=== PATIENT | female | born 1950 | race Caucasian/White ===

== ENCOUNTER 2019-09-22 19:08 | Observation (INO) ==
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
[2019-09-22 19:45] LABS: Hematocrit 49.7 % (37.0-47.0); Hemoglobin 16.8 gm/dL (12.5-16.0); Mean Cell Volume 91.2 fl (78-100); Mean Corpuscular Hemoglobin 30.8 pg (27-31); Mean Corpuscular Hgb Conc 33.8 g/dl (32-36); Mean Platelet Volume 9.7 fl (8-12.5); Neutrophil # 7.8 K/mm3 (1.3-6.0); Neutrophil % 83.2 % (42-75.0); Platelet Count 290 K/mm3 (150-450); Red Blood Count 5.45 M/mm3 (4.2-5.4); Red Cell Distribution Width 13.7 % (11.5-14.0); White Blood Count 9.4 K/mm3 (4.0-10.5)
[2019-09-22 20:03] LABS: ALT 32 U/L (19-67); AST 31 U/L (0-48); Albumin * 3.7 gm/dl (3.4-5.0); Alkaline Phosphatase * 75 U/L (50-170); Anion Gap 12.9 mmol/L (6.8-13.8); BUN/Creatinine Ratio 25.5 (9.0-21.6); Bilirubin, Total 1.3 mg/dL (0.0-1.1); Blood Urea Nitrogen 28 mg/dL (3-23); Calcium * 9.1 mg/dL (7.9-10.9); Carbon Dioxide 24.9 mmol/L (24-32.6); Chloride 105 mmol/L (97-106); Glucose * 180 mg/dL (70-110); Potassium 3.8 mmol/L (3.4-4.6); Sodium 139 mmol/L (132-142); Total Protein 7.4 gm/dL (6.2-8.2); Troponin I Less than 0.017 ng/mL (0.00-0.10)
[2019-09-22 20:10] LABS: CK Total * 571 U/L (0-259)
[2019-09-22] MEDS ORDERED: NORMAL SALINE 1,000 ML IV ONE ×2 (21:05→22:15)
[2019-09-22 21:06] LABS: Urine Bilirubin 1 mg/dl (NEGATIVE); Urine Blood 5 /ul (NEGATIVE); Urine Ketone 5 mg/dL (NEGATIVE); Urine Nitrite Negative (NEGATIVE); Urine Protein 30 mg/dL (NEGATIVE); Urine Specific Gravity >=1.030 SP.GR. (1.005-1.010); Urine Urobilinogen Normal (NORMAL)
[2019-09-22 21:07] LABS: Urine Appearance Slightly Cloudy (CLEAR); Urine Bacteria TRACE; Urine Color Dark Yellow; Urine RBC 0-5 /hpf (0-5); Urine WBC None Seen /hpf (0-5)
[2019-09-22] MEDS: NORMAL SALINE 1,000 ML IV PRN (23:20)
[2019-09-23] MEDS: NORMAL SALINE 1,000 ML IV PRN (06:05)
--- NOTE | 2019-09-23 08:10 | HP ---
Chief Complaint - Chief Complaint Date of Service: 09/23/19 Time of Service: 08:09 Chief Complaint: syncopal episode, found down History of Present Illness: Patient with a past medical history of Parkinson's disease is visiting here from [place]. She and her daughter are trying to get her a green card to stay, as she has no family left in [place]. On Sunday afternoon (2 days prior), she reportedly was trying to move a bed, was straining herself, and passed out. Her daughter was at work and no one was available to help her up. Initially in the ED, she reported her daughter saw her before going to work, but now she reports that is not accurate and nobody knew she was on the floor for that amount of time. In the ED, her lab work was essentially normal, but her CK was 517. For concerns for potential rhabdo, she was admitted for IV fluids and observation. This morning at the time of my exam, she reports feeling most normal. She does have some shakes. She missed some of her Parkinson medication doses when she was down on the floor. She uses a walker at home. She denies fever, sore throat, cough, vomiting, dysuria. She reports having some diarrhea that she gets with her medication, not increased from baseline. History obtained from her and via an master automotive glass technician. Medical History (Last Updated 09/22/19 @ 23:43 by Juany Ca RN) Brain tumor Parkinson disease Surgical History: Surgical History (Last Updated 09/23/19 @ 06:55 by Juany Ca RN) History of nephrectomy, left History of partial pancreatectomy Hx of appendectomy Hx of cholecystectomy Hx of craniotomy brain tumor removal w/plastic replacing portion of skull over right ear Hx of hysterectomy Social History: (Last Reviewed 09/22/19 @ 23:44 by Juany Ca RN) Tobacco: Smoking Status: Never smoker Alcohol: alcohol intake: never Substance Use: substance use type: does not use Review Of Systems (GEN) - Review of Systems Generalized/Overall Review: Absent: Fever EENTM: Absent: Throat Pain Respiratory: Absent: Cough, Shortness of Breath Cardiac: Absent: Chest Pain, Edema Abdominal: Present: Diarrhea. Absent: Nausea, Vomiting Genitourinary: Absent: Burning Musculoskeletal: Present: No Symptoms Reported Neurological: Present: Tremors Immunizations: IMMUNIZATION HX History of Influenza Vaccine No Allergies/Adverse Reactions: Allergies Allergy/AdvReac Type Severity Reaction Status Date / Time Penicillins Allergy Verified 09/22/19 19:30 Home Medications: HOME MEDICATIONS Buspirone HCl 7.5 mg PO BID 09/22/19 [Last Taken Unknown] Carbidopa/Levodopa [Carbidopa-Levo 10-100 mg Odt] 1 ea PO Q8H 09/22/19 [Last Taken Unknown] Exam - Exam Vital Signs: Vital Signs - Last Taken Temp 36.5 C 09/23/19 06:35 Pulse 82 09/23/19 06:35 Resp 20 09/23/19 06:35 BP 122/72 09/23/19 06:35 Pulse Ox 96 09/23/19 06:35 Constitutional: Present: Alert, Cooperative, Elderly, Obese Respiratory: Present: lungs clear, normal breath sounds, no respiratory distress Cardiovascular/Chest: Present: regular rate, rhythm Abdomen: Present: soft, nontender Extremity: Absent: lower extremity edema Diagnostic Studies: Abnormal Lab Results 09/22/19 09/22/19 09/22/19 Range/Units 19:40 19:40 20:59 RBC 5.45 H (4.2-5.4) M/mm3 Hgb 16.8 H (12.5-16.0) gm/dL Hct 49.7 H (37.0-47.0) % Neutrophils % 83.2 H (42-75.0) % Lymphocytes % 9.4 L (20-51) % Neutrophils # 7.8 H (1.3-6.0) K/mm3 Lymphocytes # 0.88 L (1.5-3.5) k/mm3 BUN 28 H (3-23) mg/dL Est GFR (Non-Af Amer) 52 L (60-130) mL/min BUN/Creatinine Ratio 25.5 H (9.0-21.6) Random Glucose 180 H (70-110) mg/dL Total Bilirubin 1.3 H (0.0-1.1) mg/dL Creatine Kinase 571 H (0-259) U/L Urine Protein 30 H (NEGATIVE) mg/dL Urine Blood 5 H (NEGATIVE) /ul Urine Bilirubin 1 H (NEGATIVE) mg/dl Laboratory Results WBC 9.4 K/mm3 (4.0-10.5) 09/22/19 19:40 RBC 5.45 M/mm3 (4.2-5.4) H 09/22/19 19:40 Hgb 16.8 gm/dL (12.5-16.0) H 09/22/19 19:40 Hct 49.7 % (37.0-47.0) H 09/22/19 19:40 MCV 91.2 fl (78-100) 09/22/19 19:40 MCH 30.8 pg (27-31) 09/22/19 19:40 MCHC 33.8 g/dl (32-36) 09/22/19 19:40 RDW 13.7 % (11.5-14.0) 09/22/19 19:40 Plt Count 290 K/mm3 (150-450) 09/22/19 19:40 MPV 9.7 fl (8-12.5) 09/22/19 19:40 Immature Gran % (Auto) 0.30 % (0.001-0.429) 09/22/19 19:40 Immature Gran # (Auto) 0.03 K/mm3 (0.000-0.0310) 09/22/19 19:40 Neutrophils % 83.2 % (42-75.0) H 09/22/19 19:40 Lymphocytes % 9.4 % (20-51) L 09/22/19 19:40 Monocytes % 6.4 % (0.0-9) 09/22/19 19:40 Eosinophils % 0.3 % (0.0-3.0) 09/22/19 19:40 Basophils % 0.4 % (0.0-1.0) 09/22/19 19:40 Nucleated RBC % 0.0 k/mm3 (0-1) 09/22/19 19:40 Neutrophils # 7.8 K/mm3 (1.3-6.0) H 09/22/19 19:40 Lymphocytes # 0.88 k/mm3 (1.5-3.5) L 09/22/19 19:40 Monocytes # 0.6 k/mm3 (0.0-1.0) 09/22/19 19:40 Eosinophils # 0.0 k/mm3 (0.0-0.7) 09/22/19 19:40 Absolute Basophils 0.0 k/mm3 (0.0-0.1) 09/22/19 19:40 Sodium 139 mmol/L (132-142) 09/22/19 19:40 Plasma Sodium 140 mmol/L (130-142) 09/22/19 19:40 Potassium 3.8 mmol/L (3.4-4.6) 09/22/19 19:40 Chloride 105 mmol/L (97-106) 09/22/19 19:40 Carbon Dioxide 24.9 mmol/L (24-32.6) 09/22/19 19:40 Anion Gap 12.9 mmol/L (6.8-13.8) 09/22/19 19:40 BUN 28 mg/dL (3-23) H 09/22/19 19:40 Creatinine 1.10 mg/dL (0.4-1.4) 09/22/19 19:40 Est GFR (Non-Af Amer) 52 mL/min (60-130) L 09/22/19 19:40 BUN/Creatinine Ratio 25.5 (9.0-21.6) H 09/22/19 19:40 Random Glucose 180 mg/dL (70-110) H 09/22/19 19:40 Calcium 9.1 mg/dL (7.9-10.9) 09/22/19 19:40 Calcium Adj for Albumin 9.0 mg/dL (8.4-10.2) 09/22/19 19:40 Total Bilirubin 1.3 mg/dL (0.0-1.1) H 09/22/19 19:40 AST 31 U/L (0-48) 09/22/19 19:40 ALT 32 U/L (19-67) 09/22/19 19:40 Alkaline Phosphatase 75 U/L (50-170) 09/22/19 19:40 Creatine Kinase 571 U/L (0-259) H 09/22/19 19:40 Troponin I Less than 0.017 ng/mL (0.00-0.10) 09/22/19 19:40 Total Protein 7.4 gm/dL (6.2-8.2) 09/22/19 19:40 Albumin 3.7 gm/dl (3.4-5.0) 09/22/19 19:40 Urine Color Dark yellow 09/22/19 20:59 Urine Appearance Slightly cloudy (CLEAR) 09/22/19 20:59 Urine pH 6.0 pH (5.0-7.0) 09/22/19 20:59 Ur Specific [place] >=1.030 SP.GR. (1.005-1.010) 09/22/19 20:59 Urine Protein 30 mg/dL (NEGATIVE) H 09/22/19 20:59 Urine Glucose (UA) Negative mg/dL (NEGATIVE) 09/22/19 20:59 Urine Ketones 5 mg/dL (NEGATIVE) 09/22/19 20:59 Urine Blood 5 /ul (NEGATIVE) H 09/22/19 20:59 Urine Nitrate Negative (NEGATIVE) 09/22/19 20:59 Urine Bilirubin 1 mg/dl (NEGATIVE) H 09/22/19 20:59 Urine Ictotest Negative (NEGATIVE) 09/22/19 20:59 Prot Sulfosalicylic Acd 1+ mg/dL (0) 09/22/19 20:59 Urine Urobilinogen Normal EU/dl (NORMAL) 09/22/19 20:59 Ur Leukocyte Esterase Negative /ul (NEGATIVE) 09/22/19 20:59 Urine RBC 0-5 /hpf (0-5) 09/22/19 20:59 Urine WBC None seen /hpf (0-5) 09/22/19 20:59 Ur Epithelial Cells None seen /hpf (0-5) 09/22/19 20:59 Urine Bacteria Trace (NONE) 09/22/19 20:59 Urine Culture Comments Culture to follow 09/22/19 20:59 Assessment/Plan - Assessment/Plan (1) Rhabdomyolysis Assessment: With her CK of 517, well below the threshold of 5 times upper limit of normal, there is less concern for rhabdo. Creatinine was 1.1, so she does not have an acute kidney injury. She denies muscle pain this morning. Her urine was described as dark yellow on UA, with a specific gravity of greater than 1.03. She was given maintenance fluids overnight. PT eval pending, and likely discharge later this afternoon. Problem: Ruled-out Qualifiers: Rhabdomyolysis type: traumatic Encounter type: initial encounter Qualified Code(s): T79.6XXA - Traumatic ischemia of muscle, initial encounter (2) Parkinson disease Assessment: She initially reported being diagnosed 2 years ago in [place], but this morning reports being diagnosed within the last 6 months. A physician in [place] has been filling her Parkinson medications. We will attempt to get those records. Continue carvidopa-levadopa. She is hoping to get a life alert bracelet, and can give her and her family that information. She uses a walker at baseline. Problem: Chronic (3) Fall Assessment: She is not reporting any injury from her fall. CT head and C-spine done in the ED were normal. Problem: Acute Qualifiers: Encounter type: initial encounter Qualified Code(s): W19.XXXA - Unspecified fall, initial encounter
[2019-09-23] MEDS ORDERED: busPIRone HCL 5 MG TABLET PO SCH (09:00)
[2019-09-23] MEDS: LEVODOPA PO SCH ×2 (09:24→16:52)
[2019-09-23] MEDS: CARBIDOPA PO SCH ×2 (09:24→16:52)
--- NOTE | 2019-09-23 16:24 | DS ---
(1) Rhabdomyolysis Problem: Ruled-out Qualifiers: Rhabdomyolysis type: traumatic Encounter type: initial encounter Qualified Code(s): T79.6XXA - Traumatic ischemia of muscle, initial encounter (2) Parkinson disease Problem: Chronic (3) Fall Problem: Acute Qualifiers: Encounter type: initial encounter Qualified Code(s): W19.XXXA - Unspecified fall, initial encounter Date of Discharge:: 09/23/19 Description of Stay: Patient with a past medical history of Parkinson's disease is visiting here from [place]. History obtained from her and via an ostrich farm worker. She is in the process of possibly moving here, as she has no family left in [place]. On Sunday afternoon (2 days prior), she reportedly was trying to move a bed, was straining herself, and passed out. Her daughter was at work and no one was available to help her up. In the ED, her lab work was essentially normal, but her CK was 517. For concerns for potential rhabdo, she was admitted for IV fluids and observation. At the time of my exam the morning after admission, she reports feeling almost normal. She does have some shakes. She missed some of her Parkinson medication doses when she was down on the floor. She uses a walker at home. She denies fever, sore throat, cough, vomiting, dysuria. She reports having some diarrhea that she gets with her medication, not increased from baseline. During her stay, she was evaluated by physical therapy, who reported she would benefit from skilled physical therapy. However, since she is visiting from [place], she has to pay for all services. Concerns for her mobility were relayed to her family. Recommend she not be home alone and have assistance with transfers. Since her CK was well within the 5X upper limits of normal and she denied muscle pains on the morning after admission, it was felt she did not actually have rhabdomyolysis. She was DC'd after a period of observation. Procedures Performed: none Results and Findings: Pending Mircobiology Results 09/22/19 21:00 Urine,Catheterized Urine Culture - Preliminary No Growth Lab Pending Results 09/22/19 19:40: WBC 9.4, RBC 5.45 H, Hgb 16.8 H, Hct 49.7 H, MCV 91.2, MCH 30.8, MCHC 33.8, RDW 13.7, Plt Count 290, MPV 9.7, Immature Gran % (Auto) 0.30, Immature Gran # (Auto) 0.03, Neutrophils % 83.2 H, Lymphocytes % 9.4 L, Monocytes % 6.4, Eosinophils % 0.3, Basophils % 0.4, Nucleated RBC % 0.0, Neutrophils # 7.8 H, Lymphocytes # 0.88 L, Monocytes # 0.6, Eosinophils # 0.0, Absolute Basophils 0.0 09/22/19 19:40: Sodium 139, Plasma Sodium 140, Potassium 3.8, Chloride 105, Carbon Dioxide 24.9, Anion Gap 12.9, BUN 28 H, Creatinine 1.10, Est GFR (Non-Af Amer) 52 L, BUN/Creatinine Ratio 25.5 H, Random Glucose 180 H, Calcium 9.1, Calcium Adj for Albumin 9.0, Total Bilirubin 1.3 H, AST 31, ALT 32, Alkaline Phosphatase 75, Creatine Kinase 571 H, Troponin I Less than 0.017, Total Protein 7.4, Albumin 3.7 09/22/19 20:59: Urine Color Dark yellow, Urine Appearance Slightly cloudy, Urine pH 6.0, Ur Specific [place] >=1.030, Urine Protein 30 H, Urine Glucose (UA) Negative, Urine Ketones 5, Urine Blood 5 H, Urine Nitrate Negative, Urine Bilirubin 1 H, Urine Ictotest Negative, Prot Sulfosalicylic Acd 1+, Urine Urobilinogen Normal, Ur Leukocyte Esterase Negative, Urine RBC 0-5, Urine WBC None seen, Ur Epithelial Cells None seen, Urine Bacteria Trace, Urine Culture Comments Culture to follow Discharge Location: Home Disposition: Home self-care Condition: Stable Discharge Activity: Activity as tolerated Discharge Diet: Resume usual diet Referrals: Carmen Finnegan DO [Staff Physician] - One Week Complete Home Medications List: Complete Home Medication List: Buspirone HCl 7.5 mg PO BID 09/22/19 Carbidopa/Levodopa [Carbidopa-Levo 10-100 mg Odt] 1 ea PO Q8H 09/22/19
[2019-09-23 18:43] VITALS: BP 148/78
== END 2019-09-23 19:37 | disposition home or self-care (01) ==
LOC: MS 19:08 → ER 19:08 → MS 22:40
PROVIDERS: ADMIT Family Medicine; ATTEND Family Medicine
CPT/HCPCS: 36415; 70450; 72125; 73080; 80053; 81001; 82550; 83874; 84484; 85025; 87086; 93005; 96360; 96361; 97116; 97161; 99285; G0378

== ENCOUNTER 2019-10-07 11:23 | Inpatient (IN) ==
[2019-10-07] MEDS ORDERED: NORMAL SALINE 1,000 ML IV ONE ×2 (11:49→11:50)
--- NOTE | 2019-10-07 12:01 | ERNOTE ---
Trauma/Assault HPI - Narrative Date of Service: 10/07/19 - General Stated Complaint: fall Time Seen by Provider: 10/07/19 11:26 Source: patient Exam Limitations: other - LOC - Immun/Allergies/Home Medications Immunizations: IMMUNIZATION HX Immunizations Up to Date Yes History of Influenza Vaccine More Information Required Hx Pneumococcal Vaccination More Information Required Allergies/Adverse Reactions: Allergies Penicillins Allergy (Verified 09/30/19 04:19) Home Medications: HOME MEDICATIONS Buspirone HCl 7.5 mg PO BID 09/22/19 [Last Taken Unknown] Carbidopa/Levodopa [Carbidopa-Levo 10-100 mg Odt] 1 tab PO Q8H 09/22/19 [Last Taken Unknown] - Pain Pain Score #1 Pain Score: 7 - History of Present Illness Narrative: The patient is a 68 year old female who presents after syncopal episode which reported occurred on Sunday. There are associated symptoms of bilateral knee pain and right elbow pain. The patient reports right elbow and bilateral knee pain, 7/10. There are alleviating factors of rest. There are aggravating factors of movement. Previous treatments have included: none. The past medical history includes: Parkinson and brain tumor. The social history is negative. The patient has had no ill contacts. Patient states she was up on Sunday to make herself breakfast when she attempted to get egg out of fridge and then does not recall what happened. Patient states she awoke on the floor and has been on the floor until today when EMS arrived. EMS reports that patient was lying naked on the floor covered in feces and urine. Review of Systems - Review of Systems Constitutional: Present: weakness, fatigue. Absent: recent illness EYE: Present: no symptoms reported ENT: Present: no symptoms reported. Absent: ear pain, nasal drainage, sore throat Respiratory: Present: no symptoms reported. Absent: shortness of breath, cough Cardiology: Present: no symptoms reported. Absent: chest pain Gastrointestinal/Abdominal: Present: abdominal pain, eating less, drinking less. Absent: vomiting, diarrhea Genitourinary: Present: no symptoms reported. Absent: dysuria, decreased urinary output Musculoskeletal: Present: joint pain. Absent: neck pain Skin: Present: other - abrasions Neurological: Present: weakness. Absent: headache, dizziness/light-headedness All Other Systems: All systems neg except as marked Medical History (Last Reviewed 10/07/19 @ 11:52 by ELVIRA Bishop) Brain tumor Parkinson disease Surgical History: Surgical History (Last Reviewed 10/07/19 @ 11:52 by ELVIRA Bishop) History of nephrectomy, left History of partial pancreatectomy Hx of appendectomy Hx of cholecystectomy Hx of craniotomy brain tumor removal w/plastic replacing portion of skull over right ear Hx of hysterectomy Family History: Family History (Last Reviewed 10/07/19 @ 11:52 by ELVIRA Bishop) Other No pertinent family history Social History: (Last Reviewed 10/07/19 @ 11:52 by ELVIRA Bishop) Tobacco: Smoking Status: Never smoker Alcohol: alcohol intake: never Substance Use: substance use type: does not use Physical Exam - Physical Exam General Appearance: Present: wd/wn, alert, moderate distress Head Exam: Present: normal inspection, no evidence of injury Eye Exam: Normal inspection: bilateral, PERRL: bilateral, EOMI: bilateral Neck: Present: normal inspection, nontender, full range of motion Respiratory: Present: no respiratory distress, normal breath sounds, no accessory muscle use, lungs clear Cardiovascular/Chest: Present: regular rate, rhythm, no murmur Gastrointestinal/Abdominal: Present: normal bowel sounds, nondistended, soft, tenderness - LUQ, guarding - LUQ, other - abrasion and contusion over LUQ Extremity Exam: Present: decreased range of motion - to bilateral knees with flexion, bony tenderness - right elbow able to fully extend and flex but with discomfort upon extension, other - abrasions overlying right elbow and bilateral anterior knees Neurological Exam: Present: alert, oriented, normal mood/affect Skin Exam: Present: normal color, warm/dry, other - pressure sore to right medial great toe MP Detailed Trauma Exam Best Eye Response ([place]): (4) open spontaneously Best Verbal Response ([place]): (5) oriented Best Motor Response ([place]): (6) obeys commands [place] Total: 15 Progress - Date and Time Seen: Date and Time: 10/07/19 13:43 Results reviewed with patient and daughter at bedside. Discussed results of testing with , will admit and start on Lovenox and Coumadin. Patient does not have insurance since patient is not [place] citizen with partial residence in [facility]. Patient upon last discharge returned home since her daughter was unable to care for her due to work as well as having multiple stairs in her home. Daughter states that patient did not have follow up with post discharge due to schedule conflict and she was unable to take her and another family member was also busy. - Results and Orders Patient's Lab Results:: I have reviewed the patient's lab results. - Vital Signs Patient's Vital Signs:: I have reviewed the patient's vital signs. Vital Signs: Vital Signs 10/07/19 11:26 Temperature 35.5 C L Pulse Rate 76 Respiratory Rate 19 Blood Pressure 142/92 H O2 Sat by Pulse Oximetry 99 - EKG EKG #1 EKG: NSR - rate 73, other - left anterior fascicular block EKG read: Reviewed by me - X-Ray X-Ray #1 X-Ray: knee Interpretation: Reviewed by me X-ray Comments: IMPRESSION: SEVERE ARTHRITIC CHANGES BOTH KNEES RIGHT WORSE THAN LEFT. NO ACUTE OSSEOUS PATHOLOGY OTHERWISE IDENTIFIED. Electronically signed by Jony Romero M.D.. X-Ray #2 X-Ray: elbow Interpretation: Reviewed by me X-ray Comments: IMPRESSION: NO ACUTE OSSEOUS PATHOLOGY IDENTIFIED. Electronically signed by Jony Romero M.D - CT/Ultrasound CT/Ultrasound Narrative: IMPRESSION: NO ACUTE INTRACRANIAL ABNORMALITY IDENTIFIED. Electronically signed by Parth Ingram D.O.. IMPRESSION: 1. NO ACUTE FRACTURE OR DISLOCATION. 2. EXTENSIVE DEGENERATIVE CHANGE DESCRIBED ABOVE. Electronically signed by Parth Ingram D.O.. IMPRESSION: 1. BILATERAL RIGHT WORSE THAN LEFT PULMONARY EMBOLI WITH FAIRLY LARGE CLOT BURDEN ON THE RIGHT DISCUSSED ABOVE. NO EVIDENCE FOR RIGHT HEART STRAIN OR SADDLE EMBOLUS HOWEVER. 2. OTHERWISE NO ACUTE CARDIOPULMONARY ABNORMALITY IDENTIFIED. 3. NO EVIDENCE FOR TRAUMA. 4. CHRONIC FINDINGS DETAILS ABOVE. THESE CRITICAL RESULTS WERE CALLED TO THE ORDERING ER HEALTH CARE PROVIDER JULIA CORONA ON OCTOBER 07, 2019 AT 1:26 PM Electronically signed by Parth Ingram D.O.. IMPRESSION: 1. NO ACUTE INTRA-ABDOMINAL OR PELVIC PROCESS. 2. EXTENSIVE POSTSURGICAL CHANGES DESCRIBED ABOVE. 3. INCIDENTAL NOTE IS MADE OF A BILOBED NONAGGRESSIVE LOW-DENSITY POTENTIALLY CYSTIC MASS IN THE CECUM WHICH IS EXTENDING INTO THE LUMEN AND BEYOND THE LUMEN. RECOMMEND DIRECT VISUALIZATION WITH COLONOSCOPY FOR FURTHER EVALUATION. 4. ADDITIONAL CHRONIC FINDINGS AND DETAILS ABOVE. Electronically signed by Parth Ingram D.O.. - Progress/Reassessment Chief Complaint: Fall Departure Clinical Impression: Syncope and collapse, Multiple contusions Pulmonary embolism Qualifiers: Pulmonary embolism type: other Chronicity: acute Acute cor pulmonale presence: without acute cor pulmonale Qualified Code(s): I26.99 - Other pulmonary embolism without acute cor pulmonale - Departure Disposition: Still a patient Condition: Stable Critical Care Time - Critical Care Critical Time Spent:: No
[2019-10-07 12:25] LABS: Hematocrit 50.7 % (37.0-47.0); Hemoglobin 16.8 gm/dL (12.5-16.0); Mean Cell Volume 90.5 fl (78-100); Mean Corpuscular Hgb Conc 33.1 g/dl (32-36); Mean Platelet Volume 9.9 fl (8-12.5); Neutrophil # 10.8 K/mm3 (1.3-6.0); Neutrophil % 86.7 % (42-75.0); Platelet Count 267 K/mm3 (150-450); Red Cell Distribution Width 13.7 % (11.5-14.0); White Blood Count 12.5 K/mm3 (4.0-10.5)
[2019-10-07 12:35] LABS: Prothrombin Time (Patient) 12.1 Seconds (9.1-10.7)
[2019-10-07 12:40] LABS: INR 1.23 INR (0.92-1.08)
[2019-10-07 12:48] LABS: ALT 40 U/L (19-67); AST 34 U/L (0-48); Albumin * 3.5 gm/dl (3.4-5.0); Alkaline Phosphatase * 85 U/L (50-170); Anion Gap 12.7 mmol/L (6.8-13.8); BUN/Creatinine Ratio 39.8 (9.0-21.6); Bilirubin, Total 1.1 mg/dL (0.0-1.1); Blood Urea Nitrogen 43 mg/dL (3-23); CK Total * 496 U/L (0-259); Ca. Corrected For Albumin 8.8 mg/dL (8.4-10.2); Calcium * 8.7 mg/dL (7.9-10.9); Carbon Dioxide 25.3 mmol/L (24-32.6); Chloride 108 mmol/L (97-106); Glucose * 160 mg/dL (70-110); Sodium 142 mmol/L (132-142); Total Protein 7.2 gm/dL (6.2-8.2); Troponin I Less than 0.017 ng/mL (0.00-0.10)
[2019-10-07] MEDS ORDERED: ENOXAPARIN SODIUM 100 MG/ML SYRG SC ONE (13:49)
[2019-10-07] MEDS ORDERED: DIPHTH,PERTUSS(ACELL),TET VAC 0.5 ML VIAL IM ONE (13:50)
[2019-10-07] MEDS ORDERED: WARFARIN SODIUM 5 MG TABLET PO ONE (13:57)
[2019-10-07 15:00] LABS: Urine Appearance Clear (CLEAR); Urine Bilirubin Negative (NEGATIVE); Urine Blood Negative /ul (NEGATIVE); Urine Color Yellow; Urine Protein Negative (NEGATIVE); Urine Urobilinogen Normal (NORMAL); Urine pH 5.5 pH (5.0-7.0)
[2019-10-07 15:01] LABS: Urine Ketone 15 mg/dL (NEGATIVE); Urine Nitrite Negative (NEGATIVE); Urine RBC None Seen /hpf (0-5); Urine WBC 0-5 /hpf (0-5)
[2019-10-07 15:02] LABS: Urine Bacteria None Seen
--- NOTE | 2019-10-07 15:49 | HP ---
Chief Complaint - Chief Complaint Date of Service: 10/07/19 Time of Service: 15:49 Chief Complaint: syncope History of Present Illness: Phuong johnson is a 68-year-old white female with past medical history of Parkinson's disease who was admitted on 10/07/2019 because of a syncopal episode. The patient was trying to make her dinner and bent over to get eggs from the refrigerator and put them in a frying pruett and passed out. She said this happen ed Sunday evening (10/06/2019) although she remmebers she has been down for 2-3 days.. Due to her fall she had bruises and scrapes of her knees and right elbow. These were associated with right elbow and bilateral knee pain which she rated as 7/10. She was not able to get up from the floor and has been laying down on the floor until the day of admission when he EMS arrived. Per EMS notes the patient was found laying naked on the floor covered in feces and urine. The patient is from [facility] and living with her daughter. She was just here on 09/23/2019 for syncopal episode and elevated creatinine kinase. In the emergency room the patient's CT scan showed that she had bilateral pulmonary embolism right more than left with fairly large clot burden on the right however with no right ventricular strain or saddle embolus. Her CT scan of the abdomen showed a cystic mass on her cecal area. Her CT scan of her cervical spine showed no acute fractures. X-ray of her elbow showed no acute fracture. X-ray of her bilateral knees showed severe osteoarthritis. Her blood work showed leukocytosis and an elevated creatinine kinase of 496. Her urinalysis showed no UTI. EKG showed normal sinus rhythm with left anterior fascicular block. . Medical History (Last Reviewed 10/07/19 @ 14:47 by Charley Hood RN) Brain tumor Parkinson disease Surgical History: Surgical History (Last Reviewed 10/07/19 @ 14:47 by Charley Hood RN) History of nephrectomy, left History of partial pancreatectomy Hx of appendectomy Hx of cholecystectomy Hx of craniotomy brain tumor removal w/plastic replacing portion of skull over right ear Hx of hysterectomy Family History: Family History (Last Reviewed 10/07/19 @ 14:47 by Charley Hood RN) Other No pertinent family history Social History: (Last Reviewed 10/07/19 @ 14:47 by Charley Hood RN) Tobacco: Smoking Status: Never smoker Alcohol: alcohol intake: never Substance Use: substance use type: does not use Review Of Systems (GEN) - Review of Systems Generalized/Overall Review: Absent: Weakness, Chills, Fever EENTM: Absent: Blurred Vision Respiratory: Absent: Cough, Shortness of Breath, Orthopnea Cardiac: Present: Syncope. Absent: Chest Pain, Edema, Palpitations Abdominal: Absent: Nausea, Vomiting, Abdominal Pain Genitourinary: Absent: Urgency, Frequency Musculoskeletal: Present: Joint Pain. Absent: Back Pain Neurological: Present: Anxiety, Depressed, Tremors. Absent: Headache Skin: Absent: Lesions, Rash Endocrine: Absent: Intolerance to Cold, Intolerance to Heat Immunizations: IMMUNIZATION HX Immunizations Up to Date Yes History of Influenza Vaccine More Information Required Hx Pneumococcal Vaccination More Information Required Allergies/Adverse Reactions: Allergies Allergy/AdvReac Type Severity Reaction Status Date / Time Penicillins Allergy Verified 09/30/19 04:19 Home Medications: HOME MEDICATIONS Buspirone HCl 7.5 mg PO BID 09/22/19 [Last Taken Unknown] Carbidopa/Levodopa [Carbidopa-Levo 10-100 mg Odt] 1 tab PO Q8H 09/22/19 [Last Taken Unknown] Exam - Exam Vital Signs: Vital Signs - Last Taken Temp 36.9 C 10/07/19 14:55 Pulse 90 10/07/19 14:55 Resp 22 H 10/07/19 14:55 BP 156/70 H 10/07/19 14:55 Pulse Ox 96 10/07/19 14:55 Constitutional: Present: Alert, Oriented x3, Cooperative, Obese ENT Exam: Present: hearing grossly normal Eye Exam: bilateral eye: normal inspection, PERRL, EOMI Neck: Present: supple. Absent: lymphadenopathy (R), lymphadenopathy (L) Respiratory: Present: decreased breath sounds, No rales, No wheezing Cardiovascular/Chest: Present: regular rate, rhythm, no JVD, no murmur Abdomen: Present: Normal bowel sounds, soft, nontender, nondistended, obese Extremity: Present: no calf tenderness, pedal edema, other - bruises/scratches/abrasions Neurologic: Present: presser hand II-XII nml as tested, no motor/sensory deficits, oriented x 3, other - masl fascies Diagnostic Studies: Abnormal Lab Results 10/07/19 10/07/19 10/07/19 Range/Units 12:17 12:17 12:17 WBC 12.5 H (4.0-10.5) K/mm3 RBC 5.60 H (4.2-5.4) M/mm3 Hgb 16.8 H (12.5-16.0) gm/dL Hct 50.7 H (37.0-47.0) % Neutrophils % 86.7 H (42-75.0) % Lymphocytes % 5.6 L (20-51) % Neutrophils # 10.8 H (1.3-6.0) K/mm3 Lymphocytes # 0.70 L (1.5-3.5) k/mm3 PT 12.1 H (9.1-10.7) Seconds INR (Anticoag Therapy) 1.23 H (0.92-1.08) INR Plasma Sodium 143 H (130-142) mmol/L Chloride 108 H (97-106) mmol/L BUN 43 H D (3-23) mg/dL Est GFR (Non-Af Amer) 53 L D (60-130) mL/min BUN/Creatinine Ratio 39.8 H (9.0-21.6) Random Glucose 160 H (70-110) mg/dL Creatine Kinase 496 H (0-259) U/L Laboratory Results WBC 12.5 K/mm3 (4.0-10.5) H 10/07/19 12:17 RBC 5.60 M/mm3 (4.2-5.4) H 10/07/19 12:17 Hgb 16.8 gm/dL (12.5-16.0) H 10/07/19 12:17 Hct 50.7 % (37.0-47.0) H 10/07/19 12:17 MCV 90.5 fl (78-100) 10/07/19 12:17 MCH 30.0 pg (27-31) 10/07/19 12:17 MCHC 33.1 g/dl (32-36) 10/07/19 12:17 RDW 13.7 % (11.5-14.0) 10/07/19 12:17 Plt Count 267 K/mm3 (150-450) 10/07/19 12:17 MPV 9.9 fl (8-12.5) 10/07/19 12:17 Immature Gran % (Auto) 0.20 % (0.001-0.429) 10/07/19 12:17 Immature Gran # (Auto) 0.03 K/mm3 (0.000-0.0310) 10/07/19 12:17 Neutrophils % 86.7 % (42-75.0) H 10/07/19 12:17 Lymphocytes % 5.6 % (20-51) L 10/07/19 12:17 Monocytes % 7.0 % (0.0-9) 10/07/19 12:17 Eosinophils % 0.2 % (0.0-3.0) 10/07/19 12:17 Basophils % 0.3 % (0.0-1.0) 10/07/19 12:17 Nucleated RBC % 0.0 k/mm3 (0-1) 10/07/19 12:17 Neutrophils # 10.8 K/mm3 (1.3-6.0) H 10/07/19 12:17 Lymphocytes # 0.70 k/mm3 (1.5-3.5) L 10/07/19 12:17 Monocytes # 0.9 k/mm3 (0.0-1.0) 10/07/19 12:17 Eosinophils # 0.0 k/mm3 (0.0-0.7) 10/07/19 12:17 Absolute Basophils 0.0 k/mm3 (0.0-0.1) 10/07/19 12:17 PT 12.1 Seconds (9.1-10.7) H 10/07/19 12:17 INR (Anticoag Therapy) 1.23 INR (0.92-1.08) H 10/07/19 12:17 PTT (Kati) 25.0 Seconds (24-32) 10/07/19 12:17 Sodium 142 mmol/L (132-142) 10/07/19 12:17 Plasma Sodium 143 mmol/L (130-142) H 10/07/19 12:17 Potassium 4.0 mmol/L (3.4-4.6) 10/07/19 12:17 Chloride 108 mmol/L (97-106) H 10/07/19 12:17 Carbon Dioxide 25.3 mmol/L (24-32.6) 10/07/19 12:17 Anion Gap 12.7 mmol/L (6.8-13.8) 10/07/19 12:17 BUN 43 mg/dL (3-23) H D 10/07/19 12:17 Creatinine 1.08 mg/dL (0.4-1.4) 10/07/19 12:17 Est GFR (Non-Af Amer) 53 mL/min (60-130) L D 10/07/19 12:17 BUN/Creatinine Ratio 39.8 (9.0-21.6) H 10/07/19 12:17 Random Glucose 160 mg/dL (70-110) H 10/07/19 12:17 Calcium 8.7 mg/dL (7.9-10.9) 10/07/19 12:17 Calcium Adj for Albumin 8.8 mg/dL (8.4-10.2) 10/07/19 12:17 Total Bilirubin 1.1 mg/dL (0.0-1.1) 10/07/19 12:17 AST 34 U/L (0-48) 10/07/19 12:17 ALT 40 U/L (19-67) 10/07/19 12:17 Alkaline Phosphatase 85 U/L (50-170) 10/07/19 12:17 Creatine Kinase 496 U/L (0-259) H 10/07/19 12:17 Troponin I Less than 0.017 ng/mL (0.00-0.10) 10/07/19 12:17 Total Protein 7.2 gm/dL (6.2-8.2) 10/07/19 12:17 Albumin 3.5 gm/dl (3.4-5.0) 10/07/19 12:17 Urine Color Yellow 10/07/19 14:44 Urine Appearance Clear (CLEAR) 10/07/19 14:44 Urine pH 5.5 pH (5.0-7.0) 10/07/19 14:44 Ur Specific [place] 1.010 SP.GR. (1.005-1.010) 10/07/19 14:44 Urine Protein Negative mg/dL (NEGATIVE) 10/07/19 14:44 Urine Glucose (UA) Negative mg/dL (NEGATIVE) 10/07/19 14:44 Urine Ketones 15 mg/dL (NEGATIVE) 10/07/19 14:44 Urine Blood Negative /ul (NEGATIVE) 10/07/19 14:44 Urine Nitrate Negative (NEGATIVE) 10/07/19 14:44 Urine Bilirubin Negative mg/dl (NEGATIVE) 10/07/19 14:44 Urine Urobilinogen Normal EU/dl (NORMAL) 10/07/19 14:44 Ur Leukocyte Esterase Negative /ul (NEGATIVE) 10/07/19 14:44 Urine RBC None seen /hpf (0-5) 10/07/19 14:44 Urine WBC 0-5 /hpf (0-5) 10/07/19 14:44 Ur Epithelial Cells 0-5 /hpf (0-5) 10/07/19 14:44 Urine Bacteria None seen (NONE) 10/07/19 14:44 Urine Culture Comments No culture indicated 10/07/19 14:44 Assessment/Plan - Narrative Narrative: Phuong Johnson is a 68-year-old white female with past medical history of Parkinson's disease who was admitted for syncopal attack and bilateral pulmonary embolism, rhabdomyolysis, multiple contusions and abrasions from a fall. Her syncopal attacks most likely are due to autonomic dysfunction or postural instability from her Parkinson's disease causing orthostatic changes and gait imbalance. Although she has some soiling of her undergarments I do not believe it is secondary to seizure disorder as most likely she had been laying down on the floor for some time and was not able to to go to the bathroom. Her pulmonary embolism and elevated creatinine kinase is likely due to prolonged immobility on the floor until EMS found her. We will continue with Lovenox therapeutic and Coumadin for now and overlap for 1 to 2 days when she gets therapeutic before stopping her Lovenox. The patient though is from [place] and has no insurance while awaiting her green card status. We will ask pharmacy if Eliquis would be a cheaper alternative in this case. She will need at least 6 months of anticoagulation. We will do orthostatic vital signs to include her heart rate. She may need to be on fludrocortisone or midodrine. We will continue with IV fluids for her elevated CK. Unlikely she is having rhabdomyolysis as he urine protein is negative unless this is the beginning phase . Her leukocytosis most likely is reactive and inflammatory due to her fall and pulmonary embolism. We will monitor. - Assessment/Plan (1) Pulmonary embolism Problem: Acute Qualifiers: Pulmonary embolism type: other Chronicity: acute Acute cor pulmonale presence: without acute cor pulmonale Qualified Code(s): I26.99 - Other pulmonary embolism without acute cor pulmonale (2) Syncope and collapse Problem: Acute (3) Fall Problem: Acute Qualifiers: Encounter type: initial encounter Qualified Code(s): W19.XXXA - Unspecified fall, initial encounter (4) Rhabdomyolysis Problem: Suspected Qualifiers: Rhabdomyolysis type: traumatic Encounter type: initial encounter Qualified Code(s): T79.6XXA - Traumatic ischemia of muscle, initial encounter (5) Multiple contusions Problem: Acute (6) Parkinson disease Problem: Chronic
[2019-10-07] MEDS: NORMAL SALINE 1,000 ML IV PRN (15:56)
[2019-10-07] MEDS: busPIRone HCL 5 MG TABLET PO SCH (21:37)
[2019-10-07] MEDS: LEVODOPA PO SCH (21:37)
[2019-10-07] MEDS: CARBIDOPA PO SCH (21:37)
[2019-10-08] MEDS: ACETAMINOPHEN 500 MG TABLET PO PRN (05:15)
[2019-10-08] MEDS: LEVODOPA PO SCH ×3 (05:15→21:52)
[2019-10-08] MEDS: CARBIDOPA PO SCH ×3 (05:15→21:52)
[2019-10-08 08:43] LABS: Prothrombin Time (Patient) 12.7 Seconds (9.1-10.7)
[2019-10-08 08:44] LABS: INR 1.3 INR (0.92-1.08)
[2019-10-08] MEDS: ENOXAPARIN SODIUM 80 MG/0.8 ML DISP.SYRIN SC SCH ×2 (08:44→20:42)
[2019-10-08] MEDS: NORMAL SALINE 1,000 ML IV PRN ×3 (08:44→18:20)
[2019-10-08] MEDS: busPIRone HCL 5 MG TABLET PO SCH ×2 (08:45→20:43)
--- NOTE | 2019-10-08 08:56 | PN ---
Subjective - Date and Time Seen Date: 10/08/19 Time: 08:52 Subjective Narrative: patient hemodynamically stable overnight. will get PT for generalized weakness and PD. Objective - Review of Systems Generalized/Overall Review: Reports: Weakness. Denies: Chills, Fever EENTM: Denies: Blurred Vision Respiratory: Denies: Cough, Shortness of Breath, Orthopnea, Wheezing Cardiac: Denies: Chest Pain, Edema, Palpitations Abdominal: Denies: Nausea, Vomiting, Abdominal Pain Genitourinary Symptoms: Denies: Urgency, Frequency Musculoskeletal Complaints: Reports: Joint Pain Neurological: Denies: Headache - Vitals Vitals: Last Vital Signs Temp 36.9 C 10/08/19 06:50 Pulse 62 10/08/19 08:24 Resp 18 10/08/19 06:50 BP 133/70 10/08/19 06:50 Pulse Ox 94 10/08/19 06:50 - Abnormal Lab Findings Abnormal Lab Findings: Abnormal Lab Results 10/07/19 10/07/19 10/07/19 Range/Units 12:17 12:17 12:17 WBC 12.5 H (4.0-10.5) K/mm3 RBC 5.60 H (4.2-5.4) M/mm3 Hgb 16.8 H (12.5-16.0) gm/dL Hct 50.7 H (37.0-47.0) % Neutrophils % 86.7 H (42-75.0) % Lymphocytes % 5.6 L (20-51) % Neutrophils # 10.8 H (1.3-6.0) K/mm3 Lymphocytes # 0.70 L (1.5-3.5) k/mm3 PT 12.1 H (9.1-10.7) Seconds INR (Anticoag Therapy) 1.23 H (0.92-1.08) INR Plasma Sodium 143 H (130-142) mmol/L Chloride 108 H (97-106) mmol/L BUN 43 H D (3-23) mg/dL Est GFR (Non-Af Amer) 53 L D (60-130) mL/min BUN/Creatinine Ratio 39.8 H (9.0-21.6) Random Glucose 160 H (70-110) mg/dL Creatine Kinase 496 H (0-259) U/L 12/04/19 Range/Units 07:55 WBC (4.0-10.5) K/mm3 RBC (4.2-5.4) M/mm3 Hgb (12.5-16.0) gm/dL Hct (37.0-47.0) % Neutrophils % (42-75.0) % Lymphocytes % (20-51) % Neutrophils # (1.3-6.0) K/mm3 Lymphocytes # (1.5-3.5) k/mm3 PT 12.7 H (9.1-10.7) Seconds INR (Anticoag Therapy) 1.30 H (0.92-1.08) INR Plasma Sodium (130-142) mmol/L Chloride (97-106) mmol/L BUN (3-23) mg/dL Est GFR (Non-Af Amer) (60-130) mL/min BUN/Creatinine Ratio (9.0-21.6) Random Glucose (70-110) mg/dL Creatine Kinase (0-259) U/L - Exam Constitutional: Present: Alert, Oriented x3, Cooperative ENT Exam: Present: hearing grossly normal Neck: Present: supple. Absent: lymphadenopathy (R), lymphadenopathy (L) Respiratory: Present: decreased breath sounds, No rales, No wheezing Cardiovascular/Chest: Present: regular rate, rhythm, no JVD, no murmur Abdomen: Present: Normal bowel sounds, soft, nontender, nondistended Extremity: Present: no calf tenderness, pedal edema Assessment/Plan Plan Narrative: Phuong Aldrich was admitted for bilateral pulmonary embolism with fairly large clot on the right but no hemodynamic right ventricular strain. She is on Lovenox and Coumadin but may need to be on the newer oral anticoagulants pending because turner lysis as she has no insurance. Her vital signs did show orthostasis. We will continue with IV fluids and recheck orthostatic vital signs if still positive consider starting fludrocortisone or midodrine. 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 We will refer patient to physical therapy for evaluation and treatment . Also talked with PT to educate patient on maneuvers to increase return flow and prevent orthostasis. we will also do compression stockings. - Problems/Diagnosis (1) Pulmonary embolism Problem: Acute Qualifiers: Pulmonary embolism type: other Chronicity: acute Acute cor pulmonale presence: without acute cor pulmonale Qualified Code(s): I26.99 - Other pulmonary embolism without acute cor pulmonale (2) Syncope and collapse Problem: Acute (3) Dysautonomia orthostatic hypotension syndrome Problem: Acute (4) Fall Problem: Acute Qualifiers: Encounter type: initial encounter Qualified Code(s): W19.XXXA - Unspecified fall, initial encounter (5) Rhabdomyolysis Problem: Suspected Qualifiers: Rhabdomyolysis type: traumatic Encounter type: initial encounter Qualified Code(s): T79.6XXA - Traumatic ischemia of muscle, initial encounter (6) Multiple contusions Problem: Acute (7) Parkinson disease Problem: Chronic
--- NOTE | 2019-10-08 16:03 | CONS ---
[facility] - General Date of Service: 10/08/19 Source: patient Exam Limitations: language barrier - History of Present Illness Initial Comments: Patient is a 68 year old female, recently admitted to the hospital following a fall at home. She was admitted for treatment of syncope, multiple contusions, pulmonary embolism and suspected rhabdomyolysis. The patient states that she fell approximately 3 weeks ago as well. She feels that this was when the ulcer on the right foot developed. History is difficult to obtain due to the language barrier, she does not quite understand the questions asked. It appears she has provided no treatment to the area. She does describe pain associated with the foot and other body parts. Her medical history includes brain tumor and Parkinson's. Timing/Duration: constant Allergies/Adverse Reactions: Allergies Penicillins Allergy (Verified 09/30/19 04:19) Home Medications: Home Medications Medication Instructions Recorded Last Taken Buspirone HCl 7.5 mg PO BID 09/22/19 Unknown Carbidopa/Levodopa [Carbidopa-Levo 1 tab PO Q8H 09/22/19 Unknown 10-100 mg Odt] Procedures Closure of skin and subcutaneous tissue of other sites (08/05/12) Medications - Medications Current Medications: Current Medications Acetaminophen (Tylenol) 500 mg PO Q6H PRN PRN Reason: Mild pain (pain scale 1-3) Stop: 11/06/19 16:24 Last Admin: 10/08/19 05:15 Dose: 500 mg Documented by: Buspirone HCl (Buspar) 7.5 mg PO BID [facility] Stop: 11/06/19 22:01 Last Admin: 10/08/19 08:45 Dose: 7.5 mg Documented by: Carbidopa/Levodopa (Sinemet 10/100) 1 tab PO Q8H [facility] Stop: 11/06/19 22:01 Last Admin: 10/08/19 14:17 Dose: 1 tab Documented by: Enoxaparin Sodium (Lovenox) 80 mg SC Q12H [facility] Stop: 11/07/19 07:31 Last Admin: 10/08/19 08:44 Dose: 80 mg Documented by: Sodium Chloride (Sodium Chloride 0.9%) 1,000 mls @ 125 mls/hr IV .Q8H PRN PRN Reason: HYDRATION Stop: 11/06/19 15:04 Last Admin: 10/08/19 08:44 Dose: 125 mls/hr Documented by: Review of Systems - Review of Systems Generalized/Overall Review: Absent: Chills, Fever EENTM: Absent: Nose Congestion Respiratory: Absent: Cough Cardiac: Present: Chest Pain - related to the fall Abdominal: Absent: Nausea, Vomiting Musculoskeletal: Present: Muscle Pain Skin: Present: Lesions, Change in Color Physical Examination - Exam Vital Signs: Vital Signs - Last Taken Temp 35.9 C L 10/08/19 14:15 Pulse 66 10/08/19 15:09 Resp 18 10/08/19 14:15 BP 117/62 10/08/19 14:15 Pulse Ox 98 10/08/19 14:15 O2 Oxygen Delivery Method Room Air Constitutional: Present: Alert, Cooperative, No distress ENT Exam: Present: hearing grossly normal Respiratory: Present: no respiratory distress Skin Exam: Present: warm/dry, other - Patient has an area measuring approximately 1.5 x 0.8cm, completely covered in black necrosis. Mild erythema surrounding the area. No drainage. Point tender. - Results and Findings: Narrative: Recommend using Santyl to the black, necrotic area on the base of the right first toe. This will be covered with gauze and secured with tape. Dressing should be changed daily. Wash the area with soap and water at dressing changes. Continue to monitor for signs and symptoms of infection. Lab/Microbiology results last 24 hrs: Abnormal/Pending Laboratory Last 24 HRS 10/08/19 07:55 PT 12.7 H INR (Anticoag Therapy) 1.30 H - Assessments/Findings (1) Ulcer of right foot Problem: Acute
[2019-10-08] MEDS: WARFARIN SODIUM 5 MG TABLET PO SCH (16:36)
[2019-10-08] MEDS: COLLAGENASE CLOSTRIDIUM HIST. 30 APPL TUBE TP SCH (16:36)
[2019-10-09] MEDS: NORMAL SALINE 1,000 ML IV PRN (02:31)
[2019-10-09] MEDS: LEVODOPA PO SCH ×3 (05:35→21:30)
[2019-10-09] MEDS: CARBIDOPA PO SCH ×3 (05:35→21:30)
[2019-10-09 06:26] LABS: Hematocrit 38.3 % (37.0-47.0); Hemoglobin 12.9 gm/dL (12.5-16.0); Mean Cell Volume 91.2 fl (78-100); Mean Corpuscular Hemoglobin 30.7 pg (27-31); Mean Corpuscular Hgb Conc 33.7 g/dl (32-36); Mean Platelet Volume 9.9 fl (8-12.5); Neutrophil # 3.3 K/mm3 (1.3-6.0); Neutrophil % 61.8 % (42-75.0); Platelet Count 202 K/mm3 (150-450); Red Cell Distribution Width 13.9 % (11.5-14.0); White Blood Count 5.3 K/mm3 (4.0-10.5)
[2019-10-09 06:30] LABS: Prothrombin Time (Patient) 15.8 Seconds (9.1-10.7)
[2019-10-09 06:31] LABS: INR 1.63 INR (0.92-1.08)
[2019-10-09 06:36] LABS: Anion Gap 8.7 mmol/L (6.8-13.8); BUN/Creatinine Ratio 24.6 (9.0-21.6); Calcium * 7.3 mg/dL (7.9-10.9); Carbon Dioxide 23.6 mmol/L (24-32.6); Potassium 3.3 mmol/L (3.4-4.6)
[2019-10-09] MEDS: ENOXAPARIN SODIUM 80 MG/0.8 ML DISP.SYRIN SC SCH ×2 (07:23→21:30)
[2019-10-09] MEDS: busPIRone HCL 5 MG TABLET PO SCH ×2 (08:40→21:30)
[2019-10-09] MEDS: COLLAGENASE CLOSTRIDIUM HIST. 30 APPL TUBE TP SCH (08:42)
[2019-10-09] MEDS ORDERED: POTASSIUM CHLORIDE 10 MEQ TABLET.SA PO ONE (09:22)
[2019-10-09] MEDS ORDERED: CARBIDOPA PO SCH (09:30)
[2019-10-09] MEDS ORDERED: LEVODOPA PO SCH (09:30)
--- NOTE | 2019-10-09 09:30 | PN ---
Subjective - Date and Time Seen Date: 10/09/19 Time: 09:23 Subjective Narrative: patient afebrile. feels better. VS are no longer orthostatic. wound clinic saw patient for her toe skin ulcer. Objective - Review of Systems Generalized/Overall Review: Reports: Weakness. Denies: Chills, Fever EENTM: Denies: Blurred Vision Respiratory: Reports: Shortness of Breath. Denies: Cough, Orthopnea, Stridor Cardiac: Denies: Chest Pain, Edema, Palpitations Abdominal: Denies: Nausea, Vomiting, Abdominal Pain Genitourinary Symptoms: Denies: Itching, Urgency Musculoskeletal Complaints: Reports: Joint Pain Neurological: Denies: Headache Skin: Reports: Lesions - brises/scrates/abrasio/toe ulcer Misc: All systems neg except as marked - Vitals Vitals: Last Vital Signs Temp 36.8 C 10/09/19 06:52 Pulse 68 10/09/19 06:52 Resp 18 10/09/19 06:52 BP 121/62 10/09/19 06:52 Pulse Ox 93 10/09/19 06:52 - Abnormal Lab Findings Abnormal Lab Findings: Abnormal Lab Results 10/09/19 10/09/19 10/09/19 Range/Units 06:10 06:10 06:10 Monocytes % 10.1 H (0.0-9) % Lymphocytes # 1.33 L (1.5-3.5) k/mm3 PT 15.8 H (9.1-10.7) Seconds INR (Anticoag Therapy) 1.63 H (0.92-1.08) INR Potassium 3.3 L (3.4-4.6) mmol/L Chloride 112 H (97-106) mmol/L Carbon Dioxide 23.6 L (24-32.6) mmol/L BUN/Creatinine Ratio 24.6 H (9.0-21.6) Random Glucose 122 H (70-110) mg/dL Calcium 7.3 L (7.9-10.9) mg/dL - Exam Constitutional: Present: Alert, Oriented x3, Cooperative, Obese ENT Exam: Present: hearing grossly normal Neck: Present: supple. Absent: lymphadenopathy (R), lymphadenopathy (L) Respiratory: Present: decreased breath sounds, No rales, No wheezing Cardiovascular/Chest: Present: regular rate, rhythm, no gallop, no JVD, no murmur Abdomen: Present: Normal bowel sounds, soft, nontender, nondistended Extremity: Present: pedal edema, other - right toe ulcer Assessment/Plan Plan Narrative: Phuong Aldrich feels better but does complain of some shortness of breath with exertion. She was admitted for bilateral pulmonary embolism/syncopal episode. Physical therapy is working with her. She no longer exhibits orthostatic changes. We will stop her IV fluids. Wound clinic has recommended Santyl dressing of her right toe ulcer. We will continue with her anticoagulation. If if her dyspnea on exertion worsens we will do an echocardiogram. Pharmacy is following up with her INR. 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
[2019-10-09] MEDS: WARFARIN SODIUM 5 MG TABLET PO SCH (17:56)
[2019-10-09] MEDS ORDERED: BUSPIRONE HCL 7.5 MG PO SCH (21:00)
[2019-10-10] MEDS: ACETAMINOPHEN 500 MG TABLET PO PRN ×3 (04:22→20:03)
[2019-10-10] MEDS: ENOXAPARIN SODIUM 80 MG/0.8 ML DISP.SYRIN SC SCH ×2 (06:37→20:03)
[2019-10-10] MEDS: CARBIDOPA PO SCH ×3 (06:37→23:26)
[2019-10-10] MEDS: LEVODOPA PO SCH ×3 (06:37→23:26)
[2019-10-10 06:41] LABS: Prothrombin Time (Patient) 20.9 Seconds (9.1-10.7)
[2019-10-10 06:43] LABS: INR 2.18 INR (0.92-1.08)
--- NOTE | 2019-10-10 08:37 | PN ---
Subjective - Date and Time Seen Date: 10/10/19 Time: 08:33 Subjective Narrative: feeling less SOB. working with PT. INR is therapeutic today. pharmacy is managing her coumadin. Objective - Review of Systems Generalized/Overall Review: Reports: Weakness. Denies: Chills, Fever EENTM: Denies: Blurred Vision Respiratory: Reports: Shortness of Breath. Denies: Cough, Orthopnea Cardiac: Denies: Chest Pain, Edema, Palpitations Abdominal: Denies: Nausea, Vomiting, Abdominal Pain Genitourinary Symptoms: Denies: Urgency, Frequency Musculoskeletal Complaints: Reports: Joint Pain Neurological: Denies: Headache Skin: Reports: Lesions. Denies: Rash - Vitals Vitals: Last Vital Signs Temp 36.5 C 10/10/19 06:46 Pulse 59 L 10/10/19 06:46 Resp 16 10/10/19 06:46 BP 148/89 10/10/19 06:46 Pulse Ox 97 10/10/19 06:46 - Abnormal Lab Findings Abnormal Lab Findings: Abnormal Lab Results 10/10/19 Range/Units 06:08 PT 20.9 H (9.1-10.7) Seconds INR (Anticoag Therapy) 2.18 H (0.92-1.08) INR - Exam Constitutional: Present: Alert, Oriented x3, Cooperative ENT Exam: Present: hearing grossly normal Neck: Present: supple. Absent: lymphadenopathy (R), lymphadenopathy (L) Respiratory: Present: decreased breath sounds, No rales, No wheezing Cardiovascular/Chest: Present: regular rate, rhythm, no JVD, no murmur Abdomen: Present: Normal bowel sounds, soft, nontender, obese Extremity: Present: no calf tenderness, pedal edema Assessment/Plan Plan Narrative: Phuong Aldrich is clinically doing better. She was admitted for bilateral pulmonary embolism and syncope. She is no longer orthostatic after IV fluid boluses. Her INR is therapeutic today. She will need day of lovenox for another day for a 48 hour overlap. She is on Lovenox and Coumadin and pharmacy is managing that. She has physical therapy working with her. The problem is patient has no medical insurance while awaiting her green card. manager games is working on discharge planning. - Problems/Diagnosis (1) Pulmonary embolism Problem: Acute Qualifiers: Pulmonary embolism type: other Chronicity: acute Acute cor pulmonale presence: without acute cor pulmonale Qualified Code(s): I26.99 - Other pulmonary embolism without acute cor pulmonale (2) Syncope and collapse Problem: Resolved (3) Dysautonomia orthostatic hypotension syndrome Problem: Acute (4) Fall Problem: Acute Qualifiers: Encounter type: initial encounter Qualified Code(s): W19.XXXA - Unspecified fall, initial encounter (5) Rhabdomyolysis Problem: Ruled-out Qualifiers: Rhabdomyolysis type: traumatic Encounter type: initial encounter Qualified Code(s): T79.6XXA - Traumatic ischemia of muscle, initial encounter (6) Multiple contusions Problem: Acute (7) Parkinson disease Problem: Chronic (8) Toe ulcer Problem: Acute Qualifiers: Laterality: right
[2019-10-10] MEDS: busPIRone HCL 5 MG TABLET PO SCH ×2 (08:48→20:03)
[2019-10-10] MEDS: COLLAGENASE CLOSTRIDIUM HIST. 30 APPL TUBE TP SCH (08:48)
[2019-10-10] MEDS: WARFARIN SODIUM 5 MG TABLET PO SCH (16:34)
[2019-10-11 06:01] LABS: INR 3.72 INR (0.92-1.08)
[2019-10-11] MEDS: LEVODOPA PO SCH ×4 (07:13→22:41)
[2019-10-11] MEDS: CARBIDOPA PO SCH ×4 (07:13→22:41)
[2019-10-11] MEDS: ENOXAPARIN SODIUM 80 MG/0.8 ML DISP.SYRIN SC SCH (07:14)
[2019-10-11] MEDS: COLLAGENASE CLOSTRIDIUM HIST. 30 APPL TUBE TP SCH (08:58)
[2019-10-11] MEDS: busPIRone HCL 5 MG TABLET PO SCH ×2 (08:58→20:45)
[2019-10-11] MEDS: ACETAMINOPHEN 500 MG TABLET PO PRN (08:59)
--- NOTE | 2019-10-11 15:11 | PN ---
Subjective - Date and Time Seen Date: 10/11/19 Time: 09:50 Subjective Narrative: Phuong Oconnor is a 68-year-old female patient of Dr. Wesley who was admitted for syncope, collapse, multiple contusions. She also has Parkinson's disease. She has been started on Coumadin and on Lovenox. Her INR has been climbing each day and yesterday was therapeutic at 2.3 but today has jumped to 3.7. I spoke with Mildred Herrera, Pharm D and and we agreed that we should hold the Coumadin for a day and stop the Lovenox. INR will be rechecked in the morning and Coumadin restarted once it is under 3. Her evaluation shows her to be stable as compared to yesterday. She is in no distress although she notes that she has some difficulty with deep breaths and complains that her feet are hurting. She has NICOLLE hose and booties on at this time and so I will reexamine her feet later. Objective - Review of Systems Generalized/Overall Review: Reports: Weakness, Malaise EENTM: Reports: No Symptoms Reported Respiratory: Reports: No Symptoms Reported Cardiac: Reports: Syncope Abdominal: Reports: No Symptoms Reported Genitourinary Symptoms: Reports: No Symptoms Reported Musculoskeletal Complaints: Reports: Joint Pain, Other - Toe ulcer Neurological: Reports: No Symptoms Reported Skin: Reports: No Symptoms Reported Endocrine: Reports: No Symptoms Reported Misc: All systems neg except as marked - Vitals Vitals: Last Vital Signs Temp 37 C 10/11/19 14:14 Pulse 95 10/11/19 14:14 Resp 22 H 10/11/19 14:14 BP 100/62 10/11/19 14:14 Pulse Ox 95 10/11/19 14:14 - Abnormal Lab Findings Abnormal Lab Findings: Abnormal Lab Results 10/11/19 Range/Units 05:40 PT 35.0 H (9.1-10.7) Seconds INR (Anticoag Therapy) 3.72 H (0.92-1.08) INR - Exam Constitutional: Present: Alert, Oriented x3, Cooperative, Well developed, Well nourished, No distress ENT Exam: Present: normal ENT inspection, hearing grossly normal, pharynx normal Neck: Present: non-tender, limited range of motion Breasts: Present: Exam deferred Respiratory: Present: chest non-tender Cardiovascular/Chest: Present: normal peripheral pulses Abdomen: Present: Normal bowel sounds /Rectal: Present: Exam deferred Extremity: Present: normal range of motion Skin Exam: Present: normal color, warm/dry, no cyanosis Lymphatic: Present: no adenopathy Neurologic: Present: education director II-XII nml as tested Appearance: Present: appropriate appearance Eye contact: Present: cooperative, good eye contact, normal speech Thoughts: Present: normal thought pattern, no apparent hallucination Assessment/Plan Plan Narrative: 1. Hold Coumadin today and discontinue Lovenox 2. Repeat INR with morning lab 3. Continue current therapy - Problems/Diagnosis (1) Multiple contusions Problem: Acute (2) Pulmonary embolism Problem: Acute Qualifiers: Pulmonary embolism type: other Chronicity: acute Acute cor pulmonale presence: without acute cor pulmonale Qualified Code(s): I26.99 - Other pulmonary embolism without acute cor pulmonale (3) Toe ulcer Problem: Acute Qualifiers: Laterality: right (4) Ulcer of right foot Problem: Acute Qualifiers: Non-pressure ulcer stage: limited to breakdown of skin Qualified Code(s): L97.511 - Non-pressure chronic ulcer of other part of right foot limited to breakdown of skin (5) Syncope and collapse Problem: Resolved (6) Chest wall contusion Problem: Acute Qualifiers: Encounter type: initial encounter Laterality: left Qualified Code(s): S20.212A - Contusion of left front wall of thorax, initial encounter (7) Elbow abrasion Problem: Acute Qualifiers: Encounter type: initial encounter Laterality: unspecified laterality Qualified Code(s): S50.319A - Abrasion of unspecified elbow, initial encounter
[2019-10-11] MEDS ORDERED: WARFARIN SODIUM 5 MG TABLET PO SCH (17:00)
[2019-10-12] MEDS: ACETAMINOPHEN 500 MG TABLET PO PRN ×2 (02:09→20:33)
[2019-10-12] MEDS: CARBIDOPA PO SCH ×3 (05:08→22:42)
[2019-10-12] MEDS: LEVODOPA PO SCH ×3 (05:08→22:42)
[2019-10-12 07:58] LABS: Prothrombin Time (Patient) 27.4 Seconds (9.1-10.7)
[2019-10-12 08:00] LABS: INR 2.88 INR (0.92-1.08)
[2019-10-12] MEDS: busPIRone HCL 5 MG TABLET PO SCH ×2 (08:25→20:32)
[2019-10-12] MEDS: COLLAGENASE CLOSTRIDIUM HIST. 30 APPL TUBE TP SCH (08:25)
--- NOTE | 2019-10-12 10:16 | PN ---
Subjective - Date and Time Seen Date: 10/12/19 Time: 09:40 Subjective Narrative: Phuong is complaining of a cough that is nonproductive but persistent this morning. She is also complaining of an itchy rash on her anterior chest wall where she has had EKG electrodes placed. She would like to have both treated. Otherwise she has no new other problems or complaints. Objective - Review of Systems Generalized/Overall Review: Reports: No Symptoms Reported EENTM: Reports: No Symptoms Reported Respiratory: Reports: Cough Cardiac: Reports: No Symptoms Reported Abdominal: Reports: No Symptoms Reported Genitourinary Symptoms: Reports: No Symptoms Reported Musculoskeletal Complaints: Reports: Joint Pain Neurological: Reports: No Symptoms Reported Skin: Reports: Rash - Contact allergic reaction from adhesive on the EKG pads Endocrine: Reports: No Symptoms Reported Misc: All systems neg except as marked - Vitals Vitals: Last Vital Signs Temp 36.2 C 10/12/19 07:56 Pulse 67 10/12/19 07:56 Resp 18 10/12/19 07:56 BP 123/69 10/12/19 07:56 Pulse Ox 96 10/12/19 07:56 - Abnormal Lab Findings Abnormal Lab Findings: Abnormal Lab Results 10/12/19 Range/Units Unknown PT 27.4 H (9.1-10.7) Seconds INR (Anticoag Therapy) 2.88 H (0.92-1.08) INR - EKG/Xray Findings EKG: NSR EKG read: Reviewed by me - Exam Constitutional: Present: Alert, Oriented x3, Cooperative, Well developed, Well nourished, No distress ENT Exam: Present: normal ENT inspection, hearing grossly normal, pharynx normal, TMs normal Neck: Present: non-tender, full range of motion Breasts: Present: Exam deferred Respiratory: Present: chest non-tender, rhonchi, wheezing Cardiovascular/Chest: Present: normal peripheral pulses, regular rate, rhythm, no chest tenderness, no edema, no gallop, no JVD, no murmur, no rub Abdomen: Present: Normal bowel sounds, soft, nontender, nondistended, no rebound tenderness, no hepatospenomegaly, no masses /Rectal: Present: Exam deferred Extremity: Present: normal range of motion, non-tender, normal inspection, no pedal edema, no calf tenderness, normal capillary refill Skin Exam: Present: normal color, warm/dry, other - Open sore on the dorsum of the left foot just proximal to the great MPJ. Appears to be stage III. It is probably a friction injury as it is abraded. It does not appear to be infected. Lymphatic: Present: no adenopathy Neurologic: Present: timber inspector II-XII nml as tested, normal cerebellar test, no motor/sensory deficits Appearance: Present: appropriate appearance, appropriate insight, neat, no memory impairment Eye contact: Present: cooperative, good eye contact, normal speech Thoughts: Present: normal thought pattern, no apparent hallucination Assessment/Plan - Problems/Diagnosis (1) Multiple contusions Problem: Acute (2) Pulmonary embolism Problem: Acute Qualifiers: Pulmonary embolism type: other Chronicity: acute Acute cor pulmonale presence: without acute cor pulmonale Qualified Code(s): I26.99 - Other pulmonary embolism without acute cor pulmonale (3) Toe ulcer Problem: Acute Qualifiers: Laterality: right (4) Ulcer of right foot Problem: Acute Qualifiers: Non-pressure ulcer stage: limited to breakdown of skin Qualified Code(s): L97.511 - Non-pressure chronic ulcer of other part of right foot limited to breakdown of skin (5) Syncope and collapse Problem: Resolved (6) Chest wall contusion Problem: Acute Qualifiers: Encounter type: initial encounter Laterality: left Qualified Code(s): S20.212A - Contusion of left front wall of thorax, initial encounter (7) Elbow abrasion Problem: Acute Qualifiers: Encounter type: initial encounter Laterality: unspecified laterality Qualified Code(s): S50.319A - Abrasion of unspecified elbow, initial encounter
[2019-10-12] MEDS: WARFARIN SODIUM 2.5 MG TABLET PO SCH (17:40)
[2019-10-12] MEDS: TRIAMCINOLONE ACETONIDE 15 APPL TUBE TP SCH (20:32)
[2019-10-12] MEDS: CODEINE PHOSPHATE/GUAIFENESIN 5 ML UDC PO PRN (20:33)
[2019-10-13] MEDS: CARBIDOPA PO SCH ×3 (06:29→22:47)
[2019-10-13] MEDS: LEVODOPA PO SCH ×3 (06:29→22:47)
[2019-10-13] MEDS: CODEINE PHOSPHATE/GUAIFENESIN 5 ML UDC PO PRN ×3 (06:33→20:25)
[2019-10-13] MEDS: busPIRone HCL 5 MG TABLET PO SCH ×2 (08:49→20:25)
[2019-10-13] MEDS: TRIAMCINOLONE ACETONIDE 15 APPL TUBE TP SCH ×2 (08:49→20:25)
[2019-10-13] MEDS: COLLAGENASE CLOSTRIDIUM HIST. 30 APPL TUBE TP SCH (08:49)
[2019-10-13 08:51] LABS: Hematocrit 46.5 % (37.0-47.0); Hemoglobin 15.4 gm/dL (12.5-16.0); Mean Cell Volume 92.4 fl (78-100); Mean Corpuscular Hemoglobin 30.6 pg (27-31); Mean Corpuscular Hgb Conc 33.1 g/dl (32-36); Mean Platelet Volume 9.7 fl (8-12.5); Neutrophil # 5.1 K/mm3 (1.3-6.0); Neutrophil % 76.5 % (42-75.0); Platelet Count 262 K/mm3 (150-450); Red Blood Count 5.03 M/mm3 (4.2-5.4); Red Cell Distribution Width 14.1 % (11.5-14.0); White Blood Count 6.6 K/mm3 (4.0-10.5)
[2019-10-13 09:19] LABS: Albumin * 2.9 gm/dl (3.4-5.0); Anion Gap 15.1 mmol/L (6.8-13.8); BUN/Creatinine Ratio 19.8 (9.0-21.6); Bilirubin, Total 0.5 mg/dL (0.0-1.1); Ca. Corrected For Albumin 9.1 mg/dL (8.4-10.2); Calcium * 8.5 mg/dL (7.9-10.9); Carbon Dioxide 24.2 mmol/L (24-32.6); Potassium 4.3 mmol/L (3.4-4.6); Total Protein 6.4 gm/dL (6.2-8.2)
[2019-10-13 11:05] LABS: Prothrombin Time (Patient) 20.9 Seconds (9.1-10.7)
[2019-10-13 11:07] LABS: INR 2.18 INR (0.92-1.08)
--- NOTE | 2019-10-13 12:17 | PN ---
Subjective - Date and Time Seen Date: 10/13/19 Time: 12:08 Subjective Narrative: patient NAD. had allergy to her tape for her investigation officer. awaiting discharge plans. Objective - Review of Systems Generalized/Overall Review: Reports: Weakness. Denies: Chills, Fever EENTM: Denies: Blurred Vision Respiratory: Reports: Cough. Denies: Shortness of Breath, Wheezing Cardiac: Denies: Chest Pain, Edema, Palpitations Abdominal: Denies: Nausea, Vomiting, Abdominal Pain Genitourinary Symptoms: Denies: Itching, Urgency, Frequency Musculoskeletal Complaints: Reports: Joint Pain Neurological: Denies: Headache Skin: Reports: Rash - Vitals Vitals: Last Vital Signs Temp 37.3 C 10/13/19 10:07 Pulse 82 10/13/19 10:07 Resp 16 10/13/19 10:07 BP 121/65 10/13/19 10:07 Pulse Ox 95 10/13/19 10:07 - Abnormal Lab Findings Abnormal Lab Findings: Abnormal Lab Results 10/13/19 10/13/19 10/13/19 Range/Units 08:23 08:23 10:54 RDW 14.1 H (11.5-14.0) % Neutrophils % 76.5 H (42-75.0) % Lymphocytes % 13.4 L (20-51) % Lymphocytes # 0.89 L (1.5-3.5) k/mm3 PT 20.9 H (9.1-10.7) Seconds INR (Anticoag Therapy) 2.18 H (0.92-1.08) INR Anion Gap 15.1 H (6.8-13.8) mmol/L Random Glucose 229 H (70-110) mg/dL AST 57 H (0-48) U/L Albumin 2.9 L (3.4-5.0) gm/dl - Exam Constitutional: Present: Alert, Oriented x3, Cooperative ENT Exam: Present: hearing grossly normal Neck: Present: supple. Absent: lymphadenopathy (R), lymphadenopathy (L) Respiratory: Present: decreased breath sounds, wheezing - inspiratory, No rales Cardiovascular/Chest: Present: regular rate, rhythm, no JVD, no murmur Abdomen: Present: Normal bowel sounds, soft, nontender, nondistended Extremity: Present: no calf tenderness, pedal edema Skin Exam: Present: skin rash Assessment/Plan Plan Narrative: Phuong Aldrich was admitted for bilateral pulmonary embolism and syncopal attack. Her INR has been therapeutic. We have physical therapy working on her. We are just awaiting discharge planning because patient has no insurance and is awaiting for her green card. It has been determined that making her go to the Coumadin clinic would be a cheaper route than putting on the newer oral anticoagulation however there is a question of who is going to bring her as her daughter says she has no time and is always working. She will need a minimum of 6 months of anticoagulation. - Problems/Diagnosis (1) Pulmonary embolism Problem: Acute Qualifiers: Pulmonary embolism type: other Chronicity: acute Acute cor pulmonale presence: without acute cor pulmonale Qualified Code(s): I26.99 - Other pulmonary embolism without acute cor pulmonale (2) Syncope and collapse Problem: Resolved (3) Dysautonomia orthostatic hypotension syndrome Problem: Resolved (4) Fall Problem: Acute Qualifiers: Encounter type: initial encounter Qualified Code(s): W19.XXXA - Unspecified fall, initial encounter (5) Multiple contusions Problem: Acute (6) Parkinson disease Problem: Chronic (7) Toe ulcer Problem: Acute Qualifiers: Laterality: right
[2019-10-13] MEDS: WARFARIN SODIUM 2.5 MG TABLET PO SCH (16:54)
[2019-10-13] MEDS: ACETAMINOPHEN 500 MG TABLET PO PRN (20:25)
[2019-10-14] MEDS: LEVODOPA PO SCH ×3 (07:05→22:02)
[2019-10-14] MEDS: CARBIDOPA PO SCH ×3 (07:05→22:02)
[2019-10-14] MEDS: COLLAGENASE CLOSTRIDIUM HIST. 30 APPL TUBE TP SCH (09:30)
[2019-10-14] MEDS: TRIAMCINOLONE ACETONIDE 15 APPL TUBE TP SCH ×2 (09:31→20:18)
[2019-10-14] MEDS: busPIRone HCL 5 MG TABLET PO SCH ×2 (09:31→20:13)
[2019-10-14 10:57] LABS: INR 2.47 INR (0.92-1.08); Prothrombin Time (Patient) 23.6 Seconds (9.1-10.7)
--- NOTE | 2019-10-14 13:31 | PN ---
Subjective - Date and Time Seen Date: 10/14/19 Time: 13:28 Subjective Narrative: Patient is not in acute distress. She is therapeutic with her Coumadin dose. Case management is still working on her discharge plans. Objective - Review of Systems Generalized/Overall Review: Reports: Weakness. Denies: Chills, Fever EENTM: Denies: Blurred Vision Respiratory: Reports: Shortness of Breath. Denies: Cough, Orthopnea Cardiac: Denies: Chest Pain, Edema, Palpitations Abdominal: Denies: Nausea, Vomiting Genitourinary Symptoms: Denies: Urgency, Frequency Musculoskeletal Complaints: Reports: Joint Pain Neurological: Denies: Headache Skin: Reports: Bruising Endocrine: Denies: Intolerance to Cold, Intolerance to Heat - Vitals Vitals: Last Vital Signs Temp 36.3 C 10/14/19 10:45 Pulse 83 10/14/19 10:45 Resp 20 10/14/19 10:45 BP 110/63 10/14/19 10:45 Pulse Ox 94 10/14/19 10:45 - Abnormal Lab Findings Abnormal Lab Findings: Abnormal Lab Results 10/14/19 Range/Units 10:46 PT 23.6 H (9.1-10.7) Seconds INR (Anticoag Therapy) 2.47 H (0.92-1.08) INR - Exam Constitutional: Present: Alert, Oriented x3, Cooperative ENT Exam: Present: hearing grossly normal Neck: Present: supple. Absent: lymphadenopathy (R), lymphadenopathy (L) Respiratory: Present: normal breath sounds, No rales, No wheezing Cardiovascular/Chest: Present: regular rate, rhythm, no JVD, no murmur Abdomen: Present: Normal bowel sounds, soft, nontender, nondistended Extremity: Present: no calf tenderness, lower extremity edema Assessment/Plan Plan Narrative: Phuong was admitted for B/L P.E and syncope. she has been hemodynamically stable and is working with PT . She is therapeutic on her INR. She is just awaiting discharge planning per case management. She is from [place] and has medical insurance here. Will get an HbA1c. - Problems/Diagnosis (1) Pulmonary embolism Problem: Acute Qualifiers: Pulmonary embolism type: other Chronicity: acute Acute cor pulmonale presence: without acute cor pulmonale Qualified Code(s): I26.99 - Other pulmonary embolism without acute cor pulmonale (2) Syncope and collapse Problem: Resolved (3) Dysautonomia orthostatic hypotension syndrome Problem: Resolved (4) Fall Problem: Acute Qualifiers: Encounter type: initial encounter Qualified Code(s): W19.XXXA - Unspecified fall, initial encounter (5) Multiple contusions Problem: Acute (6) Parkinson disease Problem: Chronic (7) Toe ulcer Problem: Acute Qualifiers: Laterality: right
[2019-10-14] MEDS: CODEINE PHOSPHATE/GUAIFENESIN 5 ML UDC PO PRN ×2 (14:17→20:11)
[2019-10-14] MEDS: WARFARIN SODIUM 2.5 MG TABLET PO SCH (17:19)
[2019-10-14] MEDS: ACETAMINOPHEN 500 MG TABLET PO PRN (20:13)
[2019-10-15] MEDS: CODEINE PHOSPHATE/GUAIFENESIN 5 ML UDC PO PRN ×2 (00:21→20:36)
[2019-10-15] MEDS: ACETAMINOPHEN 500 MG TABLET PO PRN ×2 (04:36→18:35)
[2019-10-15 06:37] LABS: Hematocrit 43.4 % (37.0-47.0); Hemoglobin 14.3 gm/dL (12.5-16.0); Mean Cell Volume 91.6 fl (78-100); Mean Corpuscular Hemoglobin 30.2 pg (27-31); Mean Corpuscular Hgb Conc 32.9 g/dl (32-36); Mean Platelet Volume 9.8 fl (8-12.5); Neutrophil # 4.6 K/mm3 (1.3-6.0); Neutrophil % 69.1 % (42-75.0); Platelet Count 249 K/mm3 (150-450); Red Blood Count 4.74 M/mm3 (4.2-5.4); Red Cell Distribution Width 13.6 % (11.5-14.0); White Blood Count 6.6 K/mm3 (4.0-10.5)
[2019-10-15 06:47] LABS: Prothrombin Time (Patient) 23.5 Seconds (9.1-10.7)
[2019-10-15 06:51] LABS: BUN/Creatinine Ratio 20.8 (9.0-21.6); Estimated Creat Clear 56.2; INR 2.46 INR (0.92-1.08)
[2019-10-15 06:52] LABS: Anion Gap 11.5 mmol/L (6.8-13.8); Calcium * 8.3 mg/dL (7.9-10.9); Carbon Dioxide 26.7 mmol/L (24-32.6); Hemoglobin A1C 6.3 % (4.00-6.0); Potassium 4.2 mmol/L (3.4-4.6)
[2019-10-15] MEDS: busPIRone HCL 5 MG TABLET PO SCH ×2 (08:20→20:37)
[2019-10-15] MEDS: CARBIDOPA PO SCH ×3 (08:20→21:58)
[2019-10-15] MEDS: LEVODOPA PO SCH ×3 (08:20→21:58)
[2019-10-15] MEDS: TRIAMCINOLONE ACETONIDE 15 APPL TUBE TP SCH ×2 (08:22→20:38)
[2019-10-15] MEDS: COLLAGENASE CLOSTRIDIUM HIST. 30 APPL TUBE TP SCH (08:22)
[2019-10-15] MEDS: WARFARIN SODIUM 2.5 MG TABLET PO SCH (18:06)
--- NOTE | 2019-10-15 18:27 | PN ---
Subjective - Date and Time Seen Date: 10/15/19 Time: 18:22 Subjective Narrative: NAD. INR continues to be therapeutic. Objective - Review of Systems Generalized/Overall Review: Reports: Weakness. Denies: Chills, Fever EENTM: Denies: Blurred Vision Respiratory: Denies: Cough, Shortness of Breath, Orthopnea Cardiac: Denies: Chest Pain, Edema, Palpitations Abdominal: Denies: Nausea, Vomiting Genitourinary Symptoms: Denies: Urgency, Frequency Musculoskeletal Complaints: Reports: Joint Pain Neurological: Denies: Headache Skin: Denies: Lesions, Rash - Vitals Vitals: Last Vital Signs Temp 36.7 C 10/15/19 14:28 Pulse 90 10/15/19 14:28 Resp 20 10/15/19 14:28 BP 149/75 10/15/19 14:28 Pulse Ox 94 10/15/19 14:28 - Abnormal Lab Findings Abnormal Lab Findings: Abnormal Lab Results 10/15/19 10/15/19 10/15/19 Range/Units 06:00 06:00 06:00 Immature Gran % (Auto) 0.50 H (0.001-0.429) % Lymphocytes % 16.5 L (20-51) % Monocytes % 11.4 H (0.0-9) % Lymphocytes # 1.09 L (1.5-3.5) k/mm3 PT (9.1-10.7) Seconds INR (Anticoag Therapy) (0.92-1.08) INR Random Glucose 139 H D (70-110) mg/dL Hemoglobin A1c 6.3 H (4.00-6.0) % 10/15/19 Range/Units 06:00 Immature Gran % (Auto) (0.001-0.429) % Lymphocytes % (20-51) % Monocytes % (0.0-9) % Lymphocytes # (1.5-3.5) k/mm3 PT 23.5 H (9.1-10.7) Seconds INR (Anticoag Therapy) 2.46 H (0.92-1.08) INR Random Glucose (70-110) mg/dL Hemoglobin A1c (4.00-6.0) % - Exam Constitutional: Present: Alert, Oriented x3, Cooperative ENT Exam: Present: hearing grossly normal Neck: Present: supple. Absent: lymphadenopathy (R), lymphadenopathy (L) Respiratory: Present: normal breath sounds, No rales, No wheezing Cardiovascular/Chest: Present: regular rate, rhythm, no JVD, no murmur Abdomen: Present: Normal bowel sounds, soft, nontender, nondistended Extremity: Present: no calf tenderness, pedal edema Assessment/Plan Plan Narrative: We will continue with PT for strengthening exercises. Continue with her Coumadin. We did get a HbA1c which was 6.3. Will put her on low carb diet. Awaiting placement in [place] and possible fly back to [place] from there. - Problems/Diagnosis (1) Pulmonary embolism Problem: Acute Qualifiers: Pulmonary embolism type: other Chronicity: acute Acute cor pulmonale presence: without acute cor pulmonale Qualified Code(s): I26.99 - Other pulmonary embolism without acute cor pulmonale (2) Syncope and collapse Problem: Resolved (3) Dysautonomia orthostatic hypotension syndrome Problem: Resolved (4) Fall Problem: Acute Qualifiers: Encounter type: initial encounter Qualified Code(s): W19.XXXA - Unspecified fall, initial encounter (5) Multiple contusions Problem: Resolved (6) Parkinson disease Problem: Chronic (7) Toe ulcer Problem: Acute Qualifiers: Laterality: right (8) IFG (impaired fasting glucose) Problem: Acute
[2019-10-16] MEDS: CARBIDOPA PO SCH ×3 (05:30→21:38)
[2019-10-16] MEDS: LEVODOPA PO SCH ×3 (05:30→21:38)
[2019-10-16 07:01] LABS: INR 2.09 INR (0.92-1.08); Prothrombin Time (Patient) 20.1 Seconds (9.1-10.7)
--- NOTE | 2019-10-16 09:09 | PN ---
Subjective - Date and Time Seen Date: 10/16/19 Time: 09:03 Subjective Narrative: Cries over her present situation. Objective - Review of Systems Generalized/Overall Review: Reports: Weakness. Denies: Chills, Fever EENTM: Denies: Blurred Vision Respiratory: Denies: Cough, Shortness of Breath, Orthopnea, Wheezing Cardiac: Denies: Chest Pain, Edema, Palpitations Abdominal: Denies: Nausea, Vomiting Genitourinary Symptoms: Denies: Urgency, Frequency Musculoskeletal Complaints: Reports: Joint Pain Neurological: Reports: Anxiety Skin: Reports: Rash - Vitals Vitals: Last Vital Signs Temp 37.1 C 10/16/19 03:00 Pulse 67 10/16/19 03:00 Resp 18 10/16/19 03:00 BP 112/57 10/16/19 03:00 Pulse Ox 93 10/16/19 03:00 - Abnormal Lab Findings Abnormal Lab Findings: Abnormal Lab Results 10/16/19 Range/Units 06:33 PT 20.1 H (9.1-10.7) Seconds INR (Anticoag Therapy) 2.09 H (0.92-1.08) INR - Exam Constitutional: Present: Alert, Oriented x3, Cooperative ENT Exam: Present: hearing grossly normal Neck: Present: supple. Absent: lymphadenopathy (R), lymphadenopathy (L) Respiratory: Present: normal breath sounds, No rales, No wheezing Cardiovascular/Chest: Present: regular rate, rhythm, no JVD, no murmur Abdomen: Present: Normal bowel sounds, soft, nontender, nondistended Extremity: Present: no calf tenderness, pedal edema Assessment/Plan Plan Narrative: Phuong is anxious over her current situation. Will increase her Buspar. Continue with coumadin. She was placed on melissa carb diet for her IFG.We are still awaiting placement for her. - Problems/Diagnosis (1) Pulmonary embolism Problem: Acute Qualifiers: Pulmonary embolism type: other Chronicity: acute Acute cor pulmonale presence: without acute cor pulmonale Qualified Code(s): I26.99 - Other pulmonary embolism without acute cor pulmonale (2) Syncope and collapse Problem: Resolved (3) Dysautonomia orthostatic hypotension syndrome Problem: Resolved (4) Fall Problem: Acute Qualifiers: Encounter type: initial encounter Qualified Code(s): W19.XXXA - Unspecified fall, initial encounter (5) Multiple contusions Problem: Resolved (6) Parkinson disease Problem: Chronic (7) Toe ulcer Problem: Acute Qualifiers: Laterality: right (8) IFG (impaired fasting glucose) Problem: Acute (9) Generalized anxiety disorder Problem: Chronic
[2019-10-16] MEDS: TRIAMCINOLONE ACETONIDE 15 APPL TUBE TP SCH ×2 (09:56→20:32)
--- NOTE | 2019-10-16 11:00 | DS ---
(1) Pulmonary embolism Problem: Acute Qualifiers: Pulmonary embolism type: other Chronicity: acute Acute cor pulmonale presence: without acute cor pulmonale Qualified Code(s): I26.99 - Other pulmonary embolism without acute cor pulmonale (2) Syncope and collapse Problem: Resolved (3) Dysautonomia orthostatic hypotension syndrome Problem: Resolved (4) Fall Problem: Acute Qualifiers: Encounter type: initial encounter Qualified Code(s): W19.XXXA - Unspecified fall, initial encounter (5) Multiple contusions Problem: Resolved (6) Parkinson disease Problem: Chronic (7) Toe ulcer Problem: Acute Qualifiers: Laterality: right (8) IFG (impaired fasting glucose) Problem: Acute (9) Generalized anxiety disorder Problem: Chronic (10) Cyst Diagnosis(s): cecum Problem: Acute Date of Discharge:: 10/16/19 Description of Stay: Phuong johnson is a 68-year-old white female with past medical history of Parkinson's disease who was admitted on 10/07/2019 because of a syncopal episode. The patient was trying to make her dinner and bent over to get eggs from the refrigerator and put them in a frying pruett and passed out. She said this happened Sunday evening (10/06/2019) although she remembered she was down for 2-3 days.. Due to her fall she had bruises and scrapes of her knees and right elbow. These were associated with right elbow and bilateral knee pain which she rated as 7/10. She was not able to get up from the floor and has been laying down on the floor until the day of admission when he EMS arrived. Per EMS notes the patient was found laying naked on the floor covered in feces and urine. The patient is from [facility] and living with her daughter. She was just here on 09/23/2019 for syncopal episode and elevated creatinine kinase. In the emergency room the patient's CT scan showed that she had bilateral pulmonary embolism right more than left with fairly large clot burden on the right however with no right ventricular strain or saddle embolus. Her CT scan of the abdomen showed a cystic mass on her cecal area. Her CT scan of her cervical spine showed no acute fractures. X-ray of her elbow showed no acute fracture. X-ray of her bilateral knees showed severe osteoarthritis. Her blood work showed leukocytosis and an elevated creatinine kinase of 496. Her urinalysis showed no UTI. EKG showed normal sinus rhythm with left anterior fascicular block. She was started on subcu Lovenox therapeutic dose at twice a day and started on oral Coumadin. Her INR has been therapeutic and she has been off Lovenox after today overlap. She was started on IV fluids and her creatinine and orthostasis resolved. Rhabdomyolyisis was ruled out. She had an ulcer on her toe and wound clinic was consulted. They recommended Santyl application with daily washing with soap and water and dry dressing. She has been working with physical therapy for strengthening. Her BuSpar was increased due to her increased anxiety over her current situation. She was put on low carbohydrate diet for impaired fasting glucose. She is hemodynamically stable to go home and will follow-up with Dr. Finnegan who will follow up also her INR. Her abdominal CT scan also did show a cystic mass in the cecal region and the patient will likely benefit from colonoscopy for direct visual visualization but will need to have this done on outpatient basis and will leave it up to Dr. Finnegan to schedule it. The patient was crying over her current predicament and I did not want to tell her that she had a cystic mass in her cecum and upset her even more. We also have the problem of language barrier. I did talk to the daughter and told her about it and she will also tell her about it. Procedures Performed: none Results and Findings: Lab Pending Results 10/07/19 12:17: WBC 12.5 H, RBC 5.60 H, Hgb 16.8 H, Hct 50.7 H, MCV 90.5, MCH 30.0, MCHC 33.1, RDW 13.7, Plt Count 267, MPV 9.9, Immature Gran % (Auto) 0.20, Immature Gran # (Auto) 0.03, Neutrophils % 86.7 H, Lymphocytes % 5.6 L, Monocytes % 7.0, Eosinophils % 0.2, Basophils % 0.3, Nucleated RBC % 0.0, Neutrophils # 10.8 H, Lymphocytes # 0.70 L, Monocytes # 0.9, Eosinophils # 0.0, Absolute Basophils 0.0 10/07/19 12:17: Sodium 142, Plasma Sodium 143 H, Potassium 4.0, Chloride 108 H, Carbon Dioxide 25.3, Anion Gap 12.7, BUN 43 H D, Creatinine 1.08, Est GFR (Non- Af Amer) 53 L D, BUN/Creatinine Ratio 39.8 H, Random Glucose 160 H, Calcium 8.7, Calcium Adj for Albumin 8.8, Total Bilirubin 1.1, AST 34, ALT 40, Alkaline Phosphatase 85, Creatine Kinase 496 H, Troponin I Less than 0.017, Total Protein 7.2, Albumin 3.5 10/07/19 12:17: PT 12.1 H, INR (Anticoag Therapy) 1.23 H, PTT ([place]) 25.0 10/07/19 14:44: Urine Color Yellow, Urine Appearance Clear, Urine pH 5.5, Ur Specific [place] 1.010, Urine Protein Negative, Urine Glucose (UA) Negative, Urine Ketones 15, Urine Blood Negative, Urine Nitrate Negative, Urine Bilirubin Negative, Urine Urobilinogen Normal, Ur Leukocyte Esterase Negative, Urine RBC None seen, Urine WBC 0-5, Ur Epithelial Cells 0-5, Urine Bacteria None seen, Urine Culture Comments No culture indicated 10/08/19 07:55: PT 12.7 H, INR (Anticoag Therapy) 1.30 H 10/09/19 06:10: PT 15.8 H, INR (Anticoag Therapy) 1.63 H 10/09/19 06:10: WBC 5.3 D, RBC 4.20, Hgb 12.9, Hct 38.3, MCV 91.2, MCH 30.7, MCHC 33.7, RDW 13.9, Plt Count 202, MPV 9.9, Immature Gran % (Auto) 0.20, Immature Gran # (Auto) 0.01, Neutrophils % 61.8, Lymphocytes % 24.9, Monocytes % 10.1 H, Eosinophils % 2.4, Basophils % 0.6, Nucleated RBC % 0.0, Neutrophils # 3.3, Lymphocytes # 1.33 L, Monocytes # 0.5, Eosinophils # 0.1, Absolute Basophils 0.0 10/09/19 06:10: Sodium 141, Plasma Sodium 141, Potassium 3.3 L, Chloride 112 H, Carbon Dioxide 23.6 L, Anion Gap 8.7, BUN 15 D, Creatinine 0.61, Est GFR (Non- Af Amer) 103 D, BUN/Creatinine Ratio 24.6 H, Random Glucose 122 H, Calcium 7.3 L, Creatine Kinase 193 10/10/19 06:08: PT 20.9 H, INR (Anticoag Therapy) 2.18 H 10/11/19 05:40: PT 35.0 H, INR (Anticoag Therapy) 3.72 H 10/12/19 : PT 27.4 H, INR (Anticoag Therapy) 2.88 H 10/13/19 08:23: WBC 6.6, RBC 5.03, Hgb 15.4, Hct 46.5, MCV 92.4, MCH 30.6, MCHC 33.1, RDW 14.1 H, Plt Count 262, MPV 9.7, Immature Gran % (Auto) 0.30, Immature Gran # (Auto) 0.02, Neutrophils % 76.5 H, Lymphocytes % 13.4 L, Monocytes % 7.4, Eosinophils % 1.8, Basophils % 0.6, Nucleated RBC % 0.0, Neutrophils # 5.1, Lymphocytes # 0.89 L, Monocytes # 0.5, Eosinophils # 0.1, Absolute Basophils 0.0 10/13/19 08:23: Sodium 137, Plasma Sodium 139, Potassium 4.3 D, Chloride 102, Carbon Dioxide 24.2, Anion Gap 15.1 H, BUN 18, Creatinine 0.91, Est GFR (Non-Af Amer) 65 D, BUN/Creatinine Ratio 19.8, Random Glucose 229 H, Calcium 8.5, Calcium Adj for Albumin 9.1, Total Bilirubin 0.5, AST 57 H, ALT 26, Alkaline Phosphatase 84, Total Protein 6.4, Albumin 2.9 L 10/13/19 10:54: PT 20.9 H, INR (Anticoag Therapy) 2.18 H 10/14/19 10:46: PT 23.6 H, INR (Anticoag Therapy) 2.47 H 10/15/19 06:00: WBC 6.6, RBC 4.74, Hgb 14.3, Hct 43.4, MCV 91.6, MCH 30.2, MCHC 32.9, RDW 13.6, Plt Count 249, MPV 9.8, Immature Gran % (Auto) 0.50 H, Immature Gran # (Auto) 0.03, Neutrophils % 69.1, Lymphocytes % 16.5 L, Monocytes % 11.4 H, Eosinophils % 2.0, Basophils % 0.5, Nucleated RBC % 0.0, Neutrophils # 4.6, Lymphocytes # 1.09 L, Monocytes # 0.8, Eosinophils # 0.1, Absolute Basophils 0.0 10/15/19 06:00: Sodium 138, Plasma Sodium 139, Potassium 4.2, Chloride 104, Carbon Dioxide 26.7, Anion Gap 11.5, BUN 16, Creatinine 0.77, Est GFR (Non-Af Amer) 79 D, BUN/Creatinine Ratio 20.8, Random Glucose 139 H D, Calcium 8.3 10/15/19 06:00: Mean Blood Glucose 124, Hemoglobin A1c 6.3 H 10/15/19 06:00: PT 23.5 H, INR (Anticoag Therapy) 2.46 H 10/16/19 06:33: PT 20.1 H, INR (Anticoag Therapy) 2.09 H Discharge Location: Home Disposition: Home self-care Condition: Stable Discharge Activity: Activity as tolerated Discharge Diet: Consistent carbs Additional Patient Instructions (free text): Discuss results of abd/pelvis CT with Dr Finnegan at your followup appointment Followup appointment 10/22/19 at 15:15 Prescriptions (Any new or edited meds): busPIRone HCL [Buspar] 10 mg PO BID #60 tab Triamcinolone Acetonide [Kenalog 0.1% Cream] 1 appl TOPICAL BID #1 tube Collagenase Clostridium Hist. [Santyl] 1 appl TOPICAL DAILY #1 tube Acetaminophen [Tylenol] 500 mg PO Q6H PRN #60 tab PRN Reason: Mild Pain (Pain Scale 1-3) Warfarin Sodium 3 mg PO DAILY #30 tab Complete Home Medications List: Complete Home Medication List: Carbidopa/Levodopa [Carbidopa-Levo 10-100 mg Odt] 1 tab PO Q8H 09/22/19 Acetaminophen [Tylenol] 500 mg PO Q6H PRN #60 tab 10/16/19 Collagenase Clostridium Hist. [Santyl] 1 appl TOPICAL DAILY #1 tube 10/16/19 Triamcinolone Acetonide [Kenalog 0.1% Cream] 1 appl TOPICAL BID #1 tube 10/16/19 Warfarin Sodium 3 mg PO DAILY #30 tab 10/16/19 busPIRone HCL [Buspar] 10 mg PO BID #60 tab 10/16/19 Amb Orders for Discharge: Prothrombin Time Time Frame: 10/20/19, Facility: [facility], Location: Laboratory
[2019-10-16] MEDS: busPIRone HCL 5 MG TABLET PO SCH ×2 (13:11→20:31)
[2019-10-16] MEDS: COLLAGENASE CLOSTRIDIUM HIST. 30 APPL TUBE TP SCH (14:03)
[2019-10-16] MEDS: WARFARIN SODIUM 2.5 MG TABLET PO SCH (18:00)
[2019-10-16] MEDS: ACETAMINOPHEN 500 MG TABLET PO PRN (18:47)
[2019-10-16] MEDS ORDERED: busPIRone HCL 5 MG TABLET PO SCH (21:00)
[2019-10-16] MEDS: CODEINE PHOSPHATE/GUAIFENESIN 5 ML UDC PO PRN (21:43)
[2019-10-17] MEDS: LEVODOPA PO SCH ×2 (05:27→14:19)
[2019-10-17] MEDS: CARBIDOPA PO SCH ×2 (05:27→14:19)
[2019-10-17 07:09] LABS: Prothrombin Time (Patient) 20.5 Seconds (9.1-10.7)
[2019-10-17 07:30] LABS: INR 2.13 INR (0.92-1.08)
--- NOTE | 2019-10-17 08:22 | DS ---
(1) Pulmonary embolism Problem: Acute Qualifiers: Pulmonary embolism type: other Chronicity: acute Acute cor pulmonale presence: without acute cor pulmonale Qualified Code(s): I26.99 - Other pulmonary embolism without acute cor pulmonale (2) Syncope and collapse Problem: Resolved (3) Dysautonomia orthostatic hypotension syndrome Problem: Resolved (4) Fall Problem: Acute Qualifiers: Encounter type: initial encounter Qualified Code(s): W19.XXXA - Unspecified fall, initial encounter (5) Multiple contusions Problem: Resolved (6) Parkinson disease Problem: Chronic (7) Toe ulcer Problem: Acute Qualifiers: Laterality: right (8) IFG (impaired fasting glucose) Problem: Acute (9) Generalized anxiety disorder Problem: Chronic (10) Cyst Problem: Acute Date of Discharge:: 10/17/19 Description of Stay: Phuong johnson is a 68-year-old white female with past medical history of Parkinson's disease who was admitted on 10/07/2019 because of a syncopal episode. The patient was trying to make her dinner and bent over to get eggs from the refrigerator and put them in a frying pruett and passed out. She said this happened Sunday evening (10/06/2019) although she remembered she was down for 2-3 days.. Due to her fall she had bruises and scrapes of her knees and right elbow. These were associated with right elbow and bilateral knee pain which she rated as 7/10. She was not able to get up from the floor and has been laying down on the floor until the day of admission when he EMS arrived. Per EMS notes the patient was found laying naked on the floor covered in feces and urine. The patient is from [facility] and living with her daughter. She was just here on 09/23/2019 for syncopal episode and elevated creatinine kinase. In the emergency room the patient's CT scan showed that she had bilateral pulmonary embolism right more than left with fairly large clot burden on the right however with no right ventricular strain or saddle embolus. Her CT scan of the abdomen showed a cystic mass on her cecal area. Her CT scan of her cervical spine showed no acute fractures. X-ray of her elbow showed no acute fracture. X-ray of her bilateral knees showed severe osteoarthritis. Her blood work showed leukocytosis and an elevated creatinine kinase of 496. Her urinalysis showed no UTI. EKG showed normal sinus rhythm with left anterior fascicular block. She was started on subcu Lovenox therapeutic dose at twice a day and started on oral Coumadin. Her INR has been therapeutic and she has been off Lovenox after today overlap. She was started on IV fluids and her creatinine and orthostasis resolved. Rhabdomyolyisis was ruled out. She had an ulcer on her toe and wound clinic was consulted. They recommended Santyl application with daily washing with soap and water and dry dressing. She has been working with physical therapy for strengthening. Her BuSpar was increased due to her increased anxiety over her current situation. She was put on low carbohydrate diet for impaired fasting glucose. She is hemodynamically stable to go home and will follow-up with Dr. Finnegan who will follow up also her INR. Her abdominal CT scan also did show a cystic mass in the cecal region and the patient will likely benefit from colonoscopy for direct visual visualization but will need to have this done on outpatient basis and will leave it up to Dr. Finnegan to schedule it. I did tell her about the cystic mass today. I told her I also told her daughter who already knew about it from the ER physician. Procedures Performed: none Results and Findings: Lab Pending Results 10/07/19 12:17: WBC 12.5 H, RBC 5.60 H, Hgb 16.8 H, Hct 50.7 H, MCV 90.5, MCH 30.0, MCHC 33.1, RDW 13.7, Plt Count 267, MPV 9.9, Immature Gran % (Auto) 0.20, Immature Gran # (Auto) 0.03, Neutrophils % 86.7 H, Lymphocytes % 5.6 L, Monocytes % 7.0, Eosinophils % 0.2, Basophils % 0.3, Nucleated RBC % 0.0, Neutrophils # 10.8 H, Lymphocytes # 0.70 L, Monocytes # 0.9, Eosinophils # 0.0, Absolute Basophils 0.0 10/07/19 12:17: Sodium 142, Plasma Sodium 143 H, Potassium 4.0, Chloride 108 H, Carbon Dioxide 25.3, Anion Gap 12.7, BUN 43 H D, Creatinine 1.08, Est GFR (Non- Af Amer) 53 L D, BUN/Creatinine Ratio 39.8 H, Random Glucose 160 H, Calcium 8.7, Calcium Adj for Albumin 8.8, Total Bilirubin 1.1, AST 34, ALT 40, Alkaline Phosphatase 85, Creatine Kinase 496 H, Troponin I Less than 0.017, Total Protein 7.2, Albumin 3.5 10/07/19 12:17: PT 12.1 H, INR (Anticoag Therapy) 1.23 H, PTT ([place]) 25.0 10/07/19 14:44: Urine Color Yellow, Urine Appearance Clear, Urine pH 5.5, Ur Specific [place] 1.010, Urine Protein Negative, Urine Glucose (UA) Negative, Urine Ketones 15, Urine Blood Negative, Urine Nitrate Negative, Urine Bilirubin Negative, Urine Urobilinogen Normal, Ur Leukocyte Esterase Negative, Urine RBC None seen, Urine WBC 0-5, Ur Epithelial Cells 0-5, Urine Bacteria None seen, Urine Culture Comments No culture indicated 10/08/19 07:55: PT 12.7 H, INR (Anticoag Therapy) 1.30 H 10/09/19 06:10: PT 15.8 H, INR (Anticoag Therapy) 1.63 H 10/09/19 06:10: WBC 5.3 D, RBC 4.20, Hgb 12.9, Hct 38.3, MCV 91.2, MCH 30.7, MCHC 33.7, RDW 13.9, Plt Count 202, MPV 9.9, Immature Gran % (Auto) 0.20, Immature Gran # (Auto) 0.01, Neutrophils % 61.8, Lymphocytes % 24.9, Monocytes % 10.1 H, Eosinophils % 2.4, Basophils % 0.6, Nucleated RBC % 0.0, Neutrophils # 3.3, Lymphocytes # 1.33 L, Monocytes # 0.5, Eosinophils # 0.1, Absolute Basophils 0.0 10/09/19 06:10: Sodium 141, Plasma Sodium 141, Potassium 3.3 L, Chloride 112 H, Carbon Dioxide 23.6 L, Anion Gap 8.7, BUN 15 D, Creatinine 0.61, Est GFR (Non- Af Amer) 103 D, BUN/Creatinine Ratio 24.6 H, Random Glucose 122 H, Calcium 7.3 L, Creatine Kinase 193 10/10/19 06:08: PT 20.9 H, INR (Anticoag Therapy) 2.18 H 10/11/19 05:40: PT 35.0 H, INR (Anticoag Therapy) 3.72 H 10/12/19 : PT 27.4 H, INR (Anticoag Therapy) 2.88 H 10/13/19 08:23: WBC 6.6, RBC 5.03, Hgb 15.4, Hct 46.5, MCV 92.4, MCH 30.6, MCHC 33.1, RDW 14.1 H, Plt Count 262, MPV 9.7, Immature Gran % (Auto) 0.30, Immature Gran # (Auto) 0.02, Neutrophils % 76.5 H, Lymphocytes % 13.4 L, Monocytes % 7.4, Eosinophils % 1.8, Basophils % 0.6, Nucleated RBC % 0.0, Neutrophils # 5.1, Lymphocytes # 0.89 L, Monocytes # 0.5, Eosinophils # 0.1, Absolute Basophils 0.0 10/13/19 08:23: Sodium 137, Plasma Sodium 139, Potassium 4.3 D, Chloride 102, Carbon Dioxide 24.2, Anion Gap 15.1 H, BUN 18, Creatinine 0.91, Est GFR (Non-Af Amer) 65 D, BUN/Creatinine Ratio 19.8, Random Glucose 229 H, Calcium 8.5, Calcium Adj for Albumin 9.1, Total Bilirubin 0.5, AST 57 H, ALT 26, Alkaline Phosphatase 84, Total Protein 6.4, Albumin 2.9 L 10/13/19 10:54: PT 20.9 H, INR (Anticoag Therapy) 2.18 H 10/14/19 10:46: PT 23.6 H, INR (Anticoag Therapy) 2.47 H 10/15/19 06:00: WBC 6.6, RBC 4.74, Hgb 14.3, Hct 43.4, MCV 91.6, MCH 30.2, MCHC 32.9, RDW 13.6, Plt Count 249, MPV 9.8, Immature Gran % (Auto) 0.50 H, Immature Gran # (Auto) 0.03, Neutrophils % 69.1, Lymphocytes % 16.5 L, Monocytes % 11.4 H, Eosinophils % 2.0, Basophils % 0.5, Nucleated RBC % 0.0, Neutrophils # 4.6, Lymphocytes # 1.09 L, Monocytes # 0.8, Eosinophils # 0.1, Absolute Basophils 0.0 10/15/19 06:00: Sodium 138, Plasma Sodium 139, Potassium 4.2, Chloride 104, Carbon Dioxide 26.7, Anion Gap 11.5, BUN 16, Creatinine 0.77, Est GFR (Non-Af Amer) 79 D, BUN/Creatinine Ratio 20.8, Random Glucose 139 H D, Calcium 8.3 10/15/19 06:00: Mean Blood Glucose 124, Hemoglobin A1c 6.3 H 10/15/19 06:00: PT 23.5 H, INR (Anticoag Therapy) 2.46 H 10/16/19 06:33: PT 20.1 H, INR (Anticoag Therapy) 2.09 H 10/17/19 06:52: PT 20.5 H, INR (Anticoag Therapy) 2.13 H Discharge Location: Home Disposition: Home self-care Condition: Stable Discharge Activity: Activity as tolerated Discharge Diet: Consistent carbs Referrals: Carmen Finnegan DO [Staff Physician] - 10/22/19 3:15 pm Problem Oriented Discharge Instructions to Patient/Family: Pulmonary Embolism Additional Patient Instructions (free text): We will discuss your results of abd/pelvis CT with Dr. Finnegan at your follow-up appointment on 10-22-19 at 3:15pm. Follow up appointment Scheduled with Dr. Finnegan in the office at [facility] on 10/22/19 at 3:15pm. Prescriptions (Any new or edited meds): busPIRone HCL [Buspar] 10 mg PO BID #60 tab Triamcinolone Acetonide [Kenalog 0.1% Cream] 1 appl TOPICAL BID #1 tube Collagenase Clostridium Hist. [Santyl] 1 appl TOPICAL DAILY #1 tube Acetaminophen [Tylenol] 500 mg PO Q6H PRN #60 tab PRN Reason: Mild Pain (Pain Scale 1-3) Warfarin Sodium 3 mg PO DAILY #30 tab Complete Home Medications List: Complete Home Medication List: Carbidopa/Levodopa [Carbidopa-Levo 10-100 mg Odt] 1 tab PO Q8H 09/22/19 Acetaminophen [Tylenol] 500 mg PO Q6H PRN #60 tab 10/16/19 Collagenase Clostridium Hist. [Santyl] 1 appl TOPICAL DAILY #1 tube 10/16/19 Triamcinolone Acetonide [Kenalog 0.1% Cream] 1 appl TOPICAL BID #1 tube 10/16/19 Warfarin Sodium 3 mg PO DAILY #30 tab 10/16/19 busPIRone HCL [Buspar] 10 mg PO BID #60 tab 10/16/19 Amb Orders for Discharge: Prothrombin Time Time Frame: 10/20/19, Facility: [facility], Location: Laboratory
[2019-10-17] MEDS: TRIAMCINOLONE ACETONIDE 15 APPL TUBE TP SCH (09:39)
[2019-10-17] MEDS: busPIRone HCL 5 MG TABLET PO SCH ×2 (09:39→10:30)
[2019-10-17] MEDS: COLLAGENASE CLOSTRIDIUM HIST. 30 APPL TUBE TP SCH (09:39)
[2019-10-17 16:41] VITALS: BP 119/68
== END 2019-10-17 17:10 | disposition home or self-care (01) | DRG 176 ==
LOC: ER 11:23 → MS 13:54
PROVIDERS: ADMIT Internal Medicine; ATTEND Internal Medicine
DX: T79.6XXA Traumatic ischemia of muscle, initial encounter; R40.2413 Glasgow coma scale score 13-15, at hospital admission; S80.02XA Contusion of left knee, initial encounter; G20 Parkinson's disease; W19.XXXA Unspecified fall, initial encounter; S50.01XA Contusion of right elbow, initial encounter; S80.01XA Contusion of right knee, initial encounter; G90.1 Familial dysautonomia [Riley-Day]; R73.01 Impaired fasting glucose; L97.511 Non-pressure chronic ulcer of other part of right foot limited to breakdown of skin; F41.9 Anxiety disorder, unspecified; I26.99 Other pulmonary embolism without acute cor pulmonale; K63.9 Disease of intestine, unspecified
CPT/HCPCS: 36415; 70450; 71010; 71045; 71260; 72125; 73080; 73562; 74177; 80048; 80053; 81001; 82550; 83036; 84484; 85025; 85610; 85730; 90471; 93005; 97110; 97116; 97162; 97530; 99285; Q9967

== ENCOUNTER 2019-11-24 11:19 | Observation (INO) ==
[2019-11-24] MEDS ORDERED: NORMAL SALINE 1,000 ML IV ONE ×2 (11:44→17:28)
[2019-11-24 12:05] LABS: Hematocrit 49.3 % (37.0-47.0); Hemoglobin 16.1 gm/dL (12.5-16.0); Mean Corpuscular Hemoglobin 29.4 pg (27-31); Mean Corpuscular Hgb Conc 32.7 g/dl (32-36); Mean Platelet Volume 9.6 fl (8-12.5); Neutrophil # 8.5 K/mm3 (1.3-6.0); Neutrophil % 83.9 % (42-75.0); Platelet Count 309 K/mm3 (150-450); Red Blood Count 5.48 M/mm3 (4.2-5.4); Red Cell Distribution Width 13.6 % (11.5-14.0); White Blood Count 10.1 K/mm3 (4.0-10.5)
[2019-11-24 12:13] LABS: Prothrombin Time (Patient) 11.2 Seconds (9.1-10.7)
[2019-11-24 12:15] LABS: INR 1.14 INR (0.92-1.08)
[2019-11-24 12:23] LABS: Troponin I Less than 0.017 ng/mL (0.00-0.10)
[2019-11-24 12:31] LABS: ALT 41 U/L (19-67); AST 59 U/L (0-48); Albumin * 3.5 gm/dl (3.4-5.0); Alkaline Phosphatase * 78 U/L (50-170); Anion Gap 15.4 mmol/L (6.8-13.8); BUN/Creatinine Ratio 34.8 (9.0-21.6); Bilirubin, Total 1.1 mg/dL (0.0-1.1); Blood Urea Nitrogen 32 mg/dL (3-23); Ca. Corrected For Albumin 9.2 mg/dL (8.4-10.2); Calcium * 9.1 mg/dL (7.9-10.9); Carbon Dioxide 25.5 mmol/L (24-32.6); Chloride 107 mmol/L (97-106); Glucose * 142 mg/dL (70-110); Potassium 3.9 mmol/L (3.4-4.6); Sodium 144 mmol/L (132-142)
[2019-11-24 12:35] LABS: CK Total * 1725 U/L (0-259)
[2019-11-24 12:53] LABS: Urine Appearance Clear (CLEAR); Urine Bilirubin 1 mg/dl (NEGATIVE); Urine Blood Negative /ul (NEGATIVE); Urine Color Yellow; Urine Ketone 15 mg/dL (NEGATIVE); Urine Nitrite Negative (NEGATIVE); Urine Protein Negative (NEGATIVE); Urine Specific Gravity >=1.030 SP.GR. (1.005-1.010); Urine Urobilinogen Normal (NORMAL); Urine pH 5.5 pH (5.0-7.0)
[2019-11-24 12:54] LABS: Urine Bacteria 1+; Urine Mucus Many - 3+; Urine RBC None Seen /hpf (0-5); Urine WBC 0-5 /hpf (0-5)
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
[2019-11-24] MEDS ORDERED: WARFARIN SODIUM 3 MG TABLET PO SCH (17:00)
[2019-11-24] MEDS ORDERED: ACETAMINOPHEN 500 MG TABLET PO PRN (17:04)
[2019-11-24] MEDS: CARBIDOPA PO SCH (18:31)
[2019-11-24] MEDS: LEVODOPA PO SCH (18:31)
[2019-11-24] MEDS: NYSTATIN 15 APPL BTL TP SCH (21:05)
[2019-11-24] MEDS: busPIRone HCL 5 MG TABLET PO SCH (21:05)
[2019-11-25] MEDS: LEVODOPA PO SCH ×2 (02:24→10:41)
[2019-11-25] MEDS: CARBIDOPA PO SCH ×2 (02:24→10:41)
[2019-11-25 05:49] LABS: Hematocrit 44.8 % (37.0-47.0); Hemoglobin 14.4 gm/dL (12.5-16.0); Mean Corpuscular Hemoglobin 29.6 pg (27-31); Mean Corpuscular Hgb Conc 32.1 g/dl (32-36); Mean Platelet Volume 9.7 fl (8-12.5); Neutrophil % 72.4 % (42-75.0); Platelet Count 249 K/mm3 (150-450); Prothrombin Time (Patient) 11.9 Seconds (9.1-10.7); Red Blood Count 4.87 M/mm3 (4.2-5.4); Red Cell Distribution Width 13.7 % (11.5-14.0); White Blood Count 8.4 K/mm3 (4.0-10.5)
[2019-11-25 05:53] LABS: INR 1.21 INR (0.92-1.08)
[2019-11-25 06:17] LABS: Albumin * 2.7 gm/dl (3.4-5.0); Anion Gap 11.4 mmol/L (6.8-13.8); Bilirubin, Total 0.6 mg/dL (0.0-1.1); Ca. Corrected For Albumin 9.2 mg/dL (8.4-10.2); Calcium * 8.5 mg/dL (7.9-10.9); Carbon Dioxide 27.1 mmol/L (24-32.6); Potassium 3.5 mmol/L (3.4-4.6); Total Protein 5.8 gm/dL (6.2-8.2)
[2019-11-25] MEDS ORDERED: NORMAL SALINE 1,000 ML IV ONE (08:37)
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
[2019-11-25] MEDS ORDERED: DONEPEZIL HCL 10 MG TABLET PO SCH (09:00)
[2019-11-25] MEDS: NYSTATIN 15 APPL BTL TP SCH (10:41)
[2019-11-25] MEDS: busPIRone HCL 5 MG TABLET PO SCH (10:41)
[2019-11-25 11:52] VITALS: BP 129/72
== END 2019-11-25 11:55 | disposition home or self-care (01) ==
LOC: MS 11:19 → ER 11:19 → MS 15:55
PROVIDERS: ADMIT Family Medicine; ATTEND Family Medicine
CPT/HCPCS: 36415; 70450; 71010; 71045; 73080; 73562; 80053; 81001; 82550; 83605; 84484; 85025; 85610; 87086; 93005; 97161; 99285; G0378

== ENCOUNTER 2019-11-26 11:20 | Observation (INO) ==
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
[2019-11-26 13:00] LABS: Hematocrit 45.5 % (37.0-47.0); Hemoglobin 15.2 gm/dL (12.5-16.0); Mean Cell Volume 89.6 fl (78-100); Mean Corpuscular Hemoglobin 29.9 pg (27-31); Mean Corpuscular Hgb Conc 33.4 g/dl (32-36); Mean Platelet Volume 9.8 fl (8-12.5); Neutrophil # 7.1 K/mm3 (1.3-6.0); Neutrophil % 81.1 % (42-75.0); Platelet Count 276 K/mm3 (150-450); Red Blood Count 5.08 M/mm3 (4.2-5.4); Red Cell Distribution Width 13.3 % (11.5-14.0); White Blood Count 8.8 K/mm3 (4.0-10.5)
[2019-11-26 13:20] LABS: Albumin * 3.2 gm/dl (3.4-5.0); Anion Gap 14.4 mmol/L (6.8-13.8); BUN/Creatinine Ratio 22.9 (9.0-21.6); Bilirubin, Total 0.8 mg/dL (0.0-1.1); Ca. Corrected For Albumin 9.1 mg/dL (8.4-10.2); Calcium * 8.8 mg/dL (7.9-10.9); Potassium 3.4 mmol/L (3.4-4.6); Total Protein 6.6 gm/dL (6.2-8.2)
[2019-11-26 13:45] LABS: Prothrombin Time (Patient) 11.1 Seconds (9.1-10.7)
[2019-11-26 13:46] LABS: INR 1.13 INR (0.92-1.08)
[2019-11-26] MEDS ORDERED: NORMAL SALINE 1,000 ML IV ONE (16:28)
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
[2019-11-26] MEDS ORDERED: ACETAMINOPHEN 500 MG TABLET PO PRN (16:39)
[2019-11-26] MEDS ORDERED: WARFARIN SODIUM 1 MG TABLET ONE (23:32)
[2019-11-26] MEDS: LEVODOPA PO SCH (23:37)
[2019-11-26] MEDS: CARBIDOPA PO SCH (23:37)
[2019-11-26] MEDS: busPIRone HCL 5 MG TABLET PO SCH (23:37)
[2019-11-26] MEDS: WARFARIN SODIUM 3 MG TABLET PO SCH (23:43)
[2019-11-27] MEDS: NORMAL SALINE 1,000 ML IV PRN ×2 (00:27→07:15)
[2019-11-27] MEDS: LEVODOPA PO SCH ×3 (01:50→18:05)
[2019-11-27] MEDS: CARBIDOPA PO SCH ×3 (01:50→18:05)
[2019-11-27 05:44] LABS: Urine Bilirubin Negative (NEGATIVE); Urine Blood Negative /ul (NEGATIVE); Urine Ketone Negative (NEGATIVE); Urine Nitrite Negative (NEGATIVE); Urine Protein Negative (NEGATIVE); Urine Urobilinogen Normal (NORMAL); Urine pH 5.5 pH (5.0-7.0)
[2019-11-27 06:03] LABS: Urine Appearance Cloudy (CLEAR); Urine Bacteria 1+; Urine Color Yellow; Urine RBC None Seen /hpf (0-5); Urine WBC 0-5 /hpf (0-5)
[2019-11-27 06:39] LABS: Hematocrit 40.2 % (37.0-47.0); Hemoglobin 12.8 gm/dL (12.5-16.0); Mean Corpuscular Hgb Conc 31.8 g/dl (32-36); Mean Platelet Volume 9.5 fl (8-12.5); Neutrophil # 4.5 K/mm3 (1.3-6.0); Neutrophil % 69.1 % (42-75.0); Platelet Count 229 K/mm3 (150-450); Red Blood Count 4.42 M/mm3 (4.2-5.4); Red Cell Distribution Width 13.6 % (11.5-14.0); White Blood Count 6.5 K/mm3 (4.0-10.5)
[2019-11-27 06:52] LABS: Albumin * 2.3 gm/dl (3.4-5.0); Anion Gap 7.5 mmol/L (6.8-13.8); BUN/Creatinine Ratio 18.1 (9.0-21.6); Bilirubin, Total 0.7 mg/dL (0.0-1.1); Carbon Dioxide 26.9 mmol/L (24-32.6); Potassium 3.4 mmol/L (3.4-4.6); Total Protein 5.1 gm/dL (6.2-8.2)
[2019-11-27 08:28] LABS: Prothrombin Time (Patient) 11.7 Seconds (9.1-10.7)
[2019-11-27 08:39] LABS: INR 1.19 INR (0.92-1.08)
[2019-11-27] MEDS: busPIRone HCL 5 MG TABLET PO SCH ×2 (09:24→20:07)
[2019-11-27] MEDS: DONEPEZIL HCL 10 MG TABLET PO SCH (09:25)
[2019-11-27] MEDS ORDERED: FLU VACC QS2019-20(6MOS UP)/PF 60 MCG/0.5 ML SYRINGE IM ONE (10:00)
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
[2019-11-27] MEDS: WARFARIN SODIUM 3 MG TABLET PO SCH (18:05)
[2019-11-28] MEDS: LEVODOPA PO SCH ×3 (00:57→18:10)
[2019-11-28] MEDS: CARBIDOPA PO SCH ×3 (00:57→18:10)
[2019-11-28 06:50] LABS: Prothrombin Time (Patient) 12.6 Seconds (9.1-10.7)
[2019-11-28 06:55] LABS: INR 1.29 INR (0.92-1.08)
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
[2019-11-28] MEDS: busPIRone HCL 5 MG TABLET PO SCH (09:40)
[2019-11-28] MEDS: DONEPEZIL HCL 10 MG TABLET PO SCH (09:41)
[2019-11-28] MEDS: WARFARIN SODIUM 3 MG TABLET PO SCH (18:10)
[2019-11-28 18:17] VITALS: BP 149/83
== END 2019-11-28 19:50 | disposition home or self-care (01) ==
LOC: MS 11:20 → ER 11:20 → MS 17:17
PROVIDERS: ADMIT Internal Medicine; ATTEND Internal Medicine
CPT/HCPCS: 36415; 80053; 81001; 82550; 83874; 85025; 85610; 87077; 87086; 87186; 99285; G0378